=== PATIENT | male | born 1955 | race Caucasian/White ===

== ENCOUNTER 2020-01-12 14:14 | IRF | payer MEDICARE, BC, SELFPAY ==
--- NOTE | ~2020-01-12 | CT_ITS ---
EXAMINATION: CT chest high resolution wo co DATE: 01/25/2020 20:06 INDICATION: Shortness of breath TECHNIQUE: Computed tomography (CT) of the chest was performed without intravenous contrast. The dose -length product (DLP) was 797.73 mGy-cm. Automated exposure control and iterative reconstruction tech nique were employed. COMPARISON: None FINDINGS: There are patchy right perihilar and right upper lobe airspace opacities. Small pleural eff usions are present which cause passive atelectasis in the lower lobes. The heart size is normal. Ther e is an increase in number of nonpathologically enlarged thoracic lymph nodes. There is no evidence o f interstitial lung disease. Dense calcification of the mitral annulus is noted. There is calcified c oronary artery atherosclerosis. Asymmetric gynecomastia is noted on the left. There is a 2.6 cm adeno ma of the right adrenal gland. There is gallbladder wall thickening and pericholecystic fat stranding surrounding the gallbladder. IMPRESSION: 1. Minimal right upper lobe pneumonia. 2. Small pleural effusions with passive atelectasis in the lower lobes. 3. Gallbladder wall thickening and pericholecystic inflammation, correlate for right upper quadrant t enderness and any symptoms of acute cholecystitis. 4. No evidence of interstitial lung disease. Reviewed, dictated and finalized at location A. IMPRESSION: 1. Minimal right upper lobe pneumonia. 2. Small pleural effusions with passive atelectasis in the lower lobes. 3. Gallbladder wall thickening and pericholecystic inflammation, correlate for right upper quadrant tenderness and any symptoms of acute cholecystitis. 4. No evidence of interstitial lung disease.
--- NOTE | ~2020-01-12 | XR_ITS ---
EXAMINATION: XR chest 2V DATE: 01/18/2020 12:35 INDICATION: Shortness of breath. TECHNIQUE: Frontal and lateral views of the chest were obtained. COMPARISON: None. FINDINGS: There are small pleural effusions. There are airspace opacities in the lower lung zones. No pneumothorax. The heart size is normal. IMPRESSION: 1. Small pleural effusions. 2. Airspace opacities in the lower lung zones, consistent with atelectasis versus pneumonia. Reviewed, dictated and finalized at location A. IMPRESSION: 1. Small pleural effusions. 2. Airspace opacities in the lower lung zones, consistent with atelectasis vers us pneumonia.
[2020-01-12 14:15] VITALS: BP 143/61; PULSE 78; RESP 19; TEMP 36.6; O2SAT 94; BMI 39.2
--- NOTE | 2020-01-12 14:51 | ADMGEN ---
This patient, Rigo Ogden, was admitted to [facility] Room 225-02. Patient/family oriented to hospital policies and general routines including ID bracelet, bed and alarms, visiting hours, pain management, procedures, bathroom and other care routines, personal items, smoking policy, room service/diet, and visiting hours. Valuables list has been completed. Information on how to activate the Rapid Response Team has been discussed. Patient/Family are encouraged to report perceived risks to care and to ask questions if they do not understand what they are told or what they should do.
--- NOTE | 2020-01-12 15:15 | ADMGEN ---
This patient, Rigo Ogden, was admitted to [facility] Room 225-02. Patient/family oriented to hospital policies and general routines including ID bracelet, bed and alarms, visiting hours, pain management, procedures, bathroom and other care routines, personal items, smoking policy, room service/diet, and visiting hours. Valuables list has been completed. Information on how to activate the Rapid Response Team has been discussed. Patient/Family are encouraged to report perceived risks to care and to ask questions if they do not understand what they are told or what they should do.
[2020-01-12 16:58] VITALS: PULSE 78; RESP 19; O2SAT 94
[2020-01-12 17:13] LABS: Glucose Point of Care 89 (65-105)
[2020-01-12] MEDS: OMEGA 3 POLYUNSAT FATTY ACIDS 1 GM CAP PO (17:27)
[2020-01-12] MEDS: hydrALAZINE HCL 50 MG TABLET PO (17:28)
[2020-01-12] MEDS: SENNA/DOCUSATE SODIUM TABLET 1 TAB PO (17:29)
[2020-01-12] MEDS: FERROUS SULFATE 324 MG TABLET PO (17:29)
[2020-01-12] MEDS: cilostazoL 100 MG TABLET PO (17:29)
[2020-01-12 20:39] VITALS: PULSE 80
[2020-01-12] MEDS: carvediloL 12.5 MG TABLET 37.5 MG PO (20:39)
[2020-01-12] MEDS: DOCUSATE SODIUM 100 MG CAPSULE PO (20:40)
[2020-01-12] MEDS: ATORVASTATIN 20 MG TABLET PO (20:42)
[2020-01-12 20:55] LABS: Glucose Point of Care 112 (65-105)
[2020-01-12 21:05] LABS: Add Urine Microscopic? YES; Appearance Urine Clear (Clear); Bacteria Urine Trace /hpf; Bilirubin Urine Negative (Negative); Blood Urine 2+ (Negative); Color Urine Yellow (Yellow); Glucose Urine UA Negative (Negative); Ketones Urine Negative (Negative); Leukocyte Esterase Ur Trace LEU/UL (Negative); Mucus Urine Rare /lpf; Nitrate Urine Negative (Negative); Protein Urine 2+ mg/dL (Negative); RBC Urine 21-50 /hpf (0-2); Specific Grav Ur 1.012 (1.001-1.035); Squamous Epithelial Cell Urine Rare /hpf (Few); Urobilinogen Urine Negative mg/dL (<2.0)
--- NOTE | 2020-01-12 21:13 | PC.NURSE ---
HS insulin held d/t decreased glucose Dr Benton notified.
[2020-01-12 22:00] VITALS: BP 148/66; PULSE 80; RESP 16; TEMP 36.6; O2SAT 94
[2020-01-13 04:40] LABS: Basophils Percent Auto 0.3 % (0.2-1.2); Eosinophils Absolute Auto 0.3 K/mm3 (0-0.3); Eosinophils Percent Auto 3.6 % (0-4.4); Hematocrit 24.7 % (42.0-52.0); Hemoglobin 7.9 g/dL (14.0-18.0); Immature Granulocyte Absolute 0.04 K/mm3 (0.00-0.031); Immature Granulocyte Percent A 0.6 % (0-0.5); Lymphocytes Absolute Auto 2.42 K/mm3 (0.9-3.2); Lymphocytes Percent Auto 33.6 % (18.3-44.2); Mean Corpuscular Hemoglobin 28.5 pg (26-34); Mean Corpuscular Volume 89.2 fl (80-100); Mean Platelet Volume 11.6 fl (7.4-10.4); Monocytes Absolute Auto 0.5 K/mm3 (0.1-0.6); Monocytes Percent Auto 6.7 % (2.6-8.5); Neutrophils Percent Auto 55.2 % (45.5-73.1); Platelet Count Result 167 k/mm3 (150-375); Red Blood Count 2.77 M/mm3 (4.6-6.20); Red Cell Distribution Width 15.9 % (11.5-14.5); White Blood Count 7.2 K/mm3 (4.5-10.0)
[2020-01-13 05:19] LABS: Blood Urea Nitrogen 44 mg/dL (9-20); Calcium 8.2 mg/dL (8.4-10.2); Carbon Dioxide 23 mmol/L (22-30); Chloride 107 mmol/L (98-107); Estimated CRCL calculation 37 ml/min; Estimated Glomerular Filt Rate 27; Glucose 64 mg/dL (75-110); Potassium 4.9 mmol/L (3.4-5.0); Sodium 133 mmol/L (137-145)
[2020-01-13] MEDS: cilostazoL 100 MG TABLET PO ×2 (05:29→18:05)
[2020-01-13 05:57] LABS: Glucose Point of Care 67 (65-105)
[2020-01-13 06:00] VITALS: BP 154/67; PULSE 79; RESP 20; TEMP 36.6; O2SAT 98
[2020-01-13 06:48] LABS: Glucose Point of Care 83 (65-105)
[2020-01-13] MEDS: FERROUS SULFATE 324 MG TABLET PO ×2 (09:24→18:05)
[2020-01-13] MEDS: AMLODIPINE BESYLATE 5 MG TABLET 10 MG PO (09:24)
[2020-01-13] MEDS: ASPIRIN 81 MG ENTERIC TABLET PO (09:25)
[2020-01-13 09:26] VITALS: PULSE 79
[2020-01-13] MEDS: DOCUSATE SODIUM 100 MG CAPSULE PO ×2 (09:26→20:53)
[2020-01-13] MEDS: SENNA/DOCUSATE SODIUM TABLET 1 TAB PO ×2 (09:26→18:05)
[2020-01-13] MEDS: CHOLECALCIFEROL 1,000 UNIT TABLET 2000 UNITS PO (09:26)
[2020-01-13] MEDS: CYANOCOBALAMIN 1,000 MCG TABLET 1000 MCG PO (09:26)
[2020-01-13] MEDS: carvediloL 12.5 MG TABLET 37.5 MG PO ×2 (09:26→20:52)
[2020-01-13] MEDS: FOLIC ACID 1 MG TABLET PO (09:27)
[2020-01-13] MEDS: TAMSULOSIN HCL 0.4 MG CAPSULE PO (09:27)
[2020-01-13] MEDS: OMEGA 3 POLYUNSAT FATTY ACIDS 1 GM CAP PO ×2 (09:27→18:07)
[2020-01-13] MEDS: FINASTERIDE 5 MG TABLET PO (09:27)
[2020-01-13] MEDS: hydrALAZINE HCL 50 MG TABLET PO ×3 (09:27→18:06)
[2020-01-13] MEDS: predniSONE 5 MG TABLET PO (09:27)
--- NOTE | 2020-01-13 10:00 | WPDREHABHP ---
H&P: HPI History of Present Illness Chief complaint: Left BKA Narrative: Rigo Ogden is a 64 year old male HISTORY OF PRESENT ILLNESS: The patient's primary rehab impairment category is Zwa-rzcrtfbdia-mdiwq extremity The etiologic diagnosis is osteomyelitis of left foot I saw this patient [id number] on January 13, 2020 at 10:00 a.m. The patient is a 64-year-old white male with a past medical history of bilateral lower extremity atherosclerosis with intermittent claudication, osteomyelitis and nonhealing ulcers of the left foot, chronic kidney disease, peripheral vascular disease, diabetes mellitus with peripheral neuropathy, hypertension, hyperlipidemia and prior kidney transplant in 2013 who presented to [facility] on January 05, 2020 for an elective mvizt-jlv-ljtq amputation. He underwent the amputation on the day of arrival with Dr. Dugan. Postoperatively the patient has experienced acute postoperative pain, acute blood-loss anemia, electrolyte imbalances and nausea, urinary retention and acute kidney injury. His pain is being managed with her denominational 6 and hemoglobin is low but stable at 7.7, electrolytes are being monitored and managed as necessary. He was started on Flomax for the urinary retention and nephrology was consulted for the acute kidney injury. His BUN was 34 on admission and his creatinine was 2.6 with baseline of a +/-2. Bactrim is thought to have cause the worsening renal function and was changed to Levaquin. Patient will continue on tacrolimus and prednisone due to his history of renal transplant. Current creatinine was 2.76 and it was down from 3.01. A Rudd was placed for ongoing retention for which I have consult the urologist here the patient was given IV fluids. Rudd to remain in place for 2 more days from January 11, 2020 the patient will need continue monitoring with lab draws and adjustments as warranted. The patient will be discharged to rehab on subcutaneous heparin for DVT prophylaxis. However I do not see heparin in his discharge medications. The patient has not traveled outside the [place] or had contact with someone who is ill that has traveled outside the use in the past 21 days. The patient has not traveled to an area of the [place] that is experiencing known transmission of the Coronavirus and has not had close personal contact with anyone that has. The patient does not have a fever. The patient does not have any lower respiratory illness. The patient was tested 3 times her COVID-19 and Ultmann test were negative. Therapy was initiated at the acute care facility and the patient transferred to us from [facility] on January 12, 2020 on FALLS OR SURGERIES: The patient has had major surgeries in the 100 days prior to admission. They had falls in the past year. They had falls with injury in the past year. PAST MEDICAL HISTORY: atherosclerosis of both lower extremities with intermittent claudication, chronic kidney disease, claudication, diabetes mellitus with peripheral neuropathy, hypertension, left foot ulcers, glaucoma, blood transfusion, hyperlipidemia, kidney disease, obesity, pneumonia, peripheral vascular disease and sleep apnea PAST SURGICAL HISTORY: left 5th toe amputation, left middle toe amputation, bilateral cataract extraction, colonoscopy, surgical left healed, peripheral catheter removal, kidney transplant SOCIAL HISTORY: the patient lives with his in a 1 level home with the basement. The patient does not need to go to the basement. The patient was independent with ADLs, functional transfers, and ambulation prior. He utilized a manual wheelchair, crutches or cane. His is available to assist him of following rehab if necessary. He does report falls prior. He had major surgery this admission. Former smoker quit in 1982 alcohol use 4 times a week 3 to 4 time, no illicit use of drugs FAMILY HISTORY: mother with hypertension diabetes. Father with hear
--- NOTE | 2020-01-13 10:59 | WPDURCON ---
Assessment and Plan Assessment and plan (1) BPH loc w urin obs/LUTS: Code(s): N40.1 - Benign prostatic hyperplasia with lower urinary tract symptoms Status: Acute (2) Acute urinary retention: Code(s): R33.8 - Other retention of urine Status: Acute Assessment and Plan: Postoperative urinary retention likely resulting from underlying BPH complicated by relative immobility, affects of analgesics/ anesthetics a normal detrusor function and intermittent hyperdistention of the bladder. He has now been on tamsulosin and finasteride for a week. I will plan a voiding trial tomorrow morning. Urology Consult Note HPI Date Seen: 01/13/20 Requesting Physician: Juancarlos Benton MD Primary Care Provider: AIR TWIST OPERATOR PHYSICIAN Consult Narrative Narrative: Rigo Ogden is a 64 year old male transfer to the rehab center from [facility] where he underwent left yeyvs-oda-lbbi amputation approximately 10 days ago. Patient has no antecedent urological history and denied any difficulty voiding until postoperatively. Since the time of his procedure he has been on able to void only small amounts on an infrequent basis. He had been intermittently catheterized to yesterday when a urethral catheter was placed to drainage. Approximately 1 week ago he was started on both finasteride and tamsulosin. He again, he denies prior history of difficulty voiding hesitancy intermittency or sense of incomplete emptying. He is status post CT a cadaveric renal transplantation in 2013. Review of Systems Cardiovascular: Cardiovascular: Denies chest pain, Denies lightheadedness, Denies palpitations and Denies dyspnea Respiratory: Respiratory: Denies dyspnea Gastrointestinal: Gastrointestinal: Denies diarrhea, Denies nausea and Denies vomiting Genitourinary: Genitourinary: Denies hematuria and Denies dysuria Endocrine: Endocrine: Denies palpitations [facility] Past Medical History Medical History Amputation toe Glaucoma Hypertension Surgical History Surgical History Kidney transplanted Family History Family History Mother Family history of kidney disease Family history of obesity Hypertension Diabetes mellitus Sibling Family history of cataracts Diabetes mellitus Father Family history of heart disease in male family member before age 55 Family history of lung cancer Family history of congestive heart failure Hypertension Diabetes mellitus Social History Social History Smoking packs per day: 2 Smoking cigarettes per day: 40.0 Years smoked: 12 Smoking pack-years: 24.00 Smoking status: Former smoker Tobacco type: cigarettes Second hand tobacco smoke exposure: No Alcohol intake: current Drinks per week: 6 Substance use: never Substance use type: does not use Gender identity (if verbalized by the patient): Male Spiritual care concerns: No Meds Home Medications and Allergies Home Medications Medication Instructions Recorded Confirmed Type aspirin 81 mg tablet,delayed 81 mg PO DAILY 10/27/19 01/12/20 History release cholecalciferol (vitamin D3) 50 2,000 unit PO DAILY 10/27/19 01/12/20 History mcg (2,000 unit) chewable tablet cilostazol 100 mg tablet 100 mg PO BID 10/27/19 01/12/20 History omega-3 fatty acids 1,000 mg 1,000 mg PO BID 10/27/19 01/12/20 History capsule semaglutide 1 mg/dose (2 mg/1.5 1 mg SUB-Q WEEKLY 90 Days #9 ml 10/27/19 01/12/20 Rx mL) subcutaneous pen injector tacrolimus 1 mg capsule 1 mg PO BID 10/27/19 01/12/20 History amlodipine 10 mg PO DAILY 01/12/20 01/12/20 History atorvastatin 20 mg PO HS 01/12/20 01/12/20 History carvedilol 37.5 mg PO Q12H 01/12/20 01/12/20 History cyanocobalamin (vitamin B-12) 1,000 mc
--- NOTE | 2020-01-13 11:24 | PHAR ---
Ingredients: Tacrolimus (Anhydrous) -- 1 MG Related Documents: DRUGDEX Evaluations - TACROLIMUS Color: Brown , White Shape: Capsule-shape Imprint: 644 Form: Oral Capsule
[2020-01-13] MEDS: PHARMACIST COMMUNICATION ORDER 1 EACH XX (12:25)
[2020-01-13 12:39] LABS: Glucose Point of Care 102 (65-105)
--- NOTE | 2020-01-13 12:51 | PCCCNOTE ---
On 01/13/20, the student, [Mil Swan ], provided care and completed [facility] documentation on this patient. I have reviewed the student's documentation and agree with the findings.
[2020-01-13 13:19] VITALS: BMI 39.2
[2020-01-13 14:00] VITALS: BP 122/50; PULSE 78; RESP 20; TEMP 36.6; O2SAT 100
--- NOTE | 2020-01-13 14:31 | RPD ---
INDIVIDUALIZED PLAN OF CARE FOR Rigo Ogden Brief Synthesis of Pre-Admission Screen, Post-Admission Evaluation and Therapy Evaluations: The patient presents to rehab with osteomyelitis of left foot. Comorbidities include: acute postoperative pain, acute blood loss anemia, diabetes mellitus type 2, hypertension, hyperlipidemia, chronic kidney disease, peripheral vascular disease, obstructive sleep apnea. The patient requires physician services for medical oversight, management of post-op complications in the setting of present comorbidities, management of diabetes mellitus diagnosis, and pain management. Post-op complications have included acute postoperative pain, acute blood loss anemia, acute kidney injury, and urinary retention. The patient requires nursing services for anticoagulation therapy, diabetes training, DVT prophylactics, infection protection, medication management and education, pressure relief, and wound care. Deficits include:ADLs, Balance, Endurance, Family Training/Education, Mobility, Pain Management, ROM, Safety, Strength, Transfer Phone Circuit Operator/Case Management for: Discharge Planning and Patient/Family Counseling Physical Therapy: 5 days per week for 90 minutes. Treatments may include: Therapeutic Exercise, Gait Training, Neuromuscular Re-education, Transfer Training, Community Reintegration, Bed Mobility, Patient/Family Education, Wheelchair Mobility Group Therapy/Concurrent Therapy Rationales: -Improve attention span during functional activities in a distracted environment. -Enhance problem solving and/or adequate judgment skills during functional activities in a distracted environment. -Promote increased safety awareness in a distracted environment to reduce fall risk with functional tasks, transfers, and ambulation to allow a more safe, self-sufficient return to the home environment. -Improve dynamic balance skills to promote safety and independence with functional activities in a distracted environment for maximum gain. Occupational Therapy: 5 days per week for 90 minutes. Treatments may include: Therapeutic Exercise, Therapeutic Activity, Cognitive Training, Self-Care Transfer Training, Community Reintegration, Home Management, Patient/Family Education, Wheelchair Mobility Training, Energy Conservation Training Group Therapy/Concurrent Therapy Rationales: -Allow therapist to observe and teach generalization and carry-over of skills learned in individual therapy. -Enhance problem solving and sequencing skills during therapeutic activities in a distracted environment. -Promote increased safety awareness in a realistic setting to reduce fall risk with functional tasks due to visual and verbal distractions. -Increase functional level with ADLs, ADL transfers and use of adaptive equipment through therapeutic activities with others while promoting safety to allow a more safe, self-sufficient return home. Medical Prognosis: Good Anticipated Length of Stay: 15 days Rehab Goals: Eating Goal: 06-Independent Oral Hygiene Goal: 06-Independent Toileting Hygiene Goal: 06-Independent Shower/Bathe Self Goal: 04-Supervision or Touching Assistance Upper Body Dressing Goal: 06-Independent Lower Body Dressing Goal: 06-Independent Putting On/Taking Off Footwear Goal: 06-Independent Rolling Left and Right Goal: 06-Independent Sit to Lying Goal: 06-Independent Lying to Sitting on Side of Bed Goal: 06-Independent Sit to Stand Goal: 06-Independent Chair/Dno-cp-Fyklr Transfer Goal: 06-Independent Toilet Transfer Goal: 06-Independent Car Transfer Goal: 06-Independent Walk 10' Goal: 06-Independent Walk 50' with Two Turns Goal: 02-Substantial/Maximal Assistance Walk 150' Goal: 09-Not Applicable Walk 10' on Uneven Surface Goal: 06-Independent 1 Step (Curb) Goal: 03-Partial/Moderate Assistance 4 Steps Goal: 03-Partial/Moderate Assistance 12 Steps Goal Score: 09-Not Applicable Picking Up Object Goal: 06-Independent Wheel 50' with Two Turns S
--- NOTE | 2020-01-13 14:37 | RPD ---
INDIVIDUALIZED PLAN OF CARE FOR Rigo Ogden Brief Synthesis of Pre-Admission Screen, Post-Admission Evaluation and Therapy Evaluations: The patient presents to rehab with osteomyelitis of left foot. Comorbidities include acute postoperative pain, acute blood loss anemia, diabetes mellitus type 2, hypertension, hyperlipidemia, chronic kidney disease, peripheral vascular disease, and obstructive sleep apnea. The patient?s needs will be best met in an intensive program vs. at a lower level of care. The patient requires physician services for medical oversight, management of post-op complications in the setting of present comorbidities, management of diabetes mellitus diagnosis, and pain management. The patient requires nursing services for anticoagulation therapy, diabetes training, DVT prophylactics, infection protection, medication management and education, pressure relief, and wound care. Deficits include:ADLs, Balance, Endurance, Family Training/Education, Mobility, Pain Management, ROM, Safety, Strength, and Transfers. Rn Clinical Documentation Specialist/Case Management for: Discharge Planning and Patient/Family Counseling Physical Therapy: 5 days per week for 90 minutes. Treatments may include: Therapeutic Exercise, Gait Training, Neuromuscular Re-education, Transfer Training, Community Reintegration, Bed Mobility, Patient/Family Education, Wheelchair Mobility Group Therapy/Concurrent Therapy Rationales: -Improve attention span during functional activities in a distracted environment. -Enhance problem solving and/or adequate judgment skills during functional activities in a distracted environment. -Promote increased safety awareness in a distracted environment to reduce fall risk with functional tasks, transfers, and ambulation to allow a more safe, self-sufficient return to the home environment. -Improve dynamic balance skills to promote safety and independence with functional activities in a distracted environment for maximum gain. Occupational Therapy: 5 days per week for 90 minutes. Treatments may include: Therapeutic Exercise, Therapeutic Activity, Cognitive Training, Self-Care Transfer Training, Community Reintegration, Home Management, Patient/Family Education, Wheelchair Mobility Training, Energy Conservation Training Group Therapy/Concurrent Therapy Rationales: -Allow therapist to observe and teach generalization and carry-over of skills learned in individual therapy. -Enhance problem solving and sequencing skills during therapeutic activities in a distracted environment. -Promote increased safety awareness in a realistic setting to reduce fall risk with functional tasks due to visual and verbal distractions. -Increase functional level with ADLs, ADL transfers and use of adaptive equipment through therapeutic activities with others while promoting safety to allow a more safe, self-sufficient return home. Medical Prognosis: Good Anticipated Length of Stay: 12 days Rehab Goals: Eating Goal: 06-Independent Oral Hygiene Goal: 06-Independent Toileting Hygiene Goal: 06-Independent Shower/Bathe Self Goal: 04-Supervision or Touching Assistance Upper Body Dressing Goal: 06-Independent Lower Body Dressing Goal: 06-Independent Putting On/Taking Off Footwear Goal: 06-Independent Rolling Left and Right Goal: 06-Independent Sit to Lying Goal: 06-Independent Lying to Sitting on Side of Bed Goal: 06-Independent Sit to Stand Goal: 06-Independent Chair/Spc-tx-Upnwq Transfer Goal: 06-Independent Toilet Transfer Goal: 06-Independent Car Transfer Goal: 06-Independent Walk 10' Goal: 06-Independent Walk 50' with Two Turns Goal: 02-Substantial/Maximal Assistance Walk 150' Goal: 09-Not Applicable Walk 10' on Uneven Surface Goal: 06-Independent 1 Step (Curb) Goal: 03-Partial/Moderate Assistance 4 Steps Goal: 03-Partial/Moderate Assistance 12 Steps Goal Score: 09-Not Applicable Picking Up Object Goal: 06-Independent Wheel 50' with Two Turns Score: 06-Independent Wheel 150' G
[2020-01-13 17:02] LABS: Glucose Point of Care 106 (65-105)
[2020-01-13 20:52] VITALS: PULSE 80
[2020-01-13] MEDS: ATORVASTATIN 20 MG TABLET PO (20:52)
[2020-01-13 20:57] LABS: Glucose Point of Care 126 (65-105)
[2020-01-13 22:00] VITALS: BP 147/68; PULSE 76; RESP 18; TEMP 37.2; O2SAT 97
[2020-01-14] MEDS: cilostazoL 100 MG TABLET PO ×2 (05:37→17:26)
[2020-01-14 05:58] LABS: Glucose Point of Care 124 (65-105)
[2020-01-14 06:00] VITALS: BP 133/75; PULSE 80; RESP 18; TEMP 37; O2SAT 95
--- NOTE | 2020-01-14 08:44 | WPDUROPN2 ---
Progress Note: A&P Assessment and Plan (1) Acute urinary retention: Code(s): R33.8 - Other retention of urine Status: Acute Assessment and Plan: Voiding trial this morning. Should check bladder scan for postvoid residual. If minimal no further intervention will be required from our standpoint. It was unable to void will need Rudd catheter placed. Subjective Subjective Date/Time Seen: 01/14/20 08:44 Patient without complaints. Rudd catheter has been removed for voiding trial this morning. Review of Systems Review of Systems: All systems reviewed & are unremarkable except as noted in HPI and below Exam Const: General: no acute distress HENMT: General nose exam: Normal nares present Resp: Effort & Inspection: normal respiratory effort Cardio: Rate: regular rate GI: Inspection: non-distended Objective Data Vital Signs Vital Signs: Vital Signs - 24 hr 01/13/20 09:26 01/13/20 14:00 01/13/20 20:52 Temperature 36.6 C Pulse Rate 79 78 80 Respiratory Rate 20 Blood Pressure 122/50 L Pulse Oximetry 100 01/13/20 22:00 01/14/20 06:00 Temperature 37.2 C 37.0 C Pulse Rate 76 80 Respiratory Rate 18 18 Blood Pressure 147/68 H 133/75 Pulse Oximetry 97 95 Intake/Output Intake/Output: Intake & Output 01/11/20 01/12/20 01/13/20 01/14/20 23:59 23:59 23:59 23:59 Intake Total 240 1320 480 Output Total 1400 Balance 240 1320 -920 Meds/Results Medications: Active Medications Generic Name Dose Route Start Last Admin Trade Name Joseq PRN Reason Stop Dose Admin Amlodipine Besylate 10 mg 01/13/20 09:00 01/13/20 09:24 Norvasc PO 10 mg DAILY SKIP Administration Aspirin 81 mg 01/13/20 09:00 01/13/20 09:25 Aspirin Ec PO 81 mg DAILY SKIP Administration Atorvastatin Calcium 20 mg 01/12/20 21:00 01/13/20 20:52 Lipitor PO 20 mg HS SKIP Administration Carvedilol 37.5 mg 01/12/20 21:00 01/13/20 20:52 Coreg PO 37.5 mg Q12HR SKIP Administration Cilostazol 100 mg 01/12/20 16:30 01/14/20 05:37 Pletal PO 100 mg BIDAC SKIP Administration Cyanocobalamin 1,000 mcg 01/13/20 09:00 01/13/20 09:26 Vitamin B-12 Tab PO 1,000 mcg DAILY SKIP Administration Dextrose 12.5 gm 01/12/20 15:16 Dextrose 50% Syringe IV PUSH PRN PRN Hypoglycemia Protocol Docusate Sodium 100 mg 01/12/20 21:00 01/13/20 20:53 Colace Capsule PO 100 mg Q12HR SKIP Administration Epoetin Madhu 10,000 units 01/17/20 09:00 Epogen SUB-Q Mo@0900 SKIP Ferrous Sulfate 324 mg 01/12/20 17:00 01/13/20 18:05 Ferrous Sulfate PO 324 mg BIDWM SKIP Administration Finasteride 5 mg 01/13/20 09:00 01/13/20 09:27 Proscar PO 5 mg DAILY SKIP Administration Fish Oil 1 gm 01/12/20 17:00 01/13/20 18:07 Lovaza PO 1 gm BID SKIP Administration Folic Acid 1 mg 01/13/20 09:00 01/13/20 09:27 Folic Acid PO 1 mg DAILY SKIP Administration Glucagon 1 mg 01/12/20 15:16 Glucagon For Inj IM PRN PRN Hypoglycemia Protocol Glucose 15 gm 01/12/20 15:16 Glutose 15 PO PRN PRN Hypoglycemia Protocol Hydralazine HCl 50 mg 01/12/20 17:00 01/13/20 18:06 Apresoline Tablet PO 50 mg TID SKIP Administration Dextrose 1,000 mls @ 100 mls/hr 01/12/20 15:16 Dextrose 5% 1,000 Ml IVPB PRN PRN Hypoglycemia Protocol Insulin Human NPH 25 units 01/12/20 21:00 01/12/20 21:13 SUB-Q Not Given HS [facility] Insulin Human NPH 50 units 01/13/20 09:00 01/13/20 12:21 SUB-Q Not Given DAILY SKIP Non-Formulary Medication 1 mg 01/19/20 09:00 Semaglutide [Ozempic] SUB-Q 02/18/20 09:01 WEEKLY SKIP Prednisone 5 mg 01/13/20 09:00 01/13/20 09:27 Prednisone PO 5 mg DAILY SKIP Administration Senna/Docusate Sodium 1 tab 01/12/20 17:00 01/13/20 18:05 Senokot S Tablet PO 1 tab BID SKIP Administration Tamsulosin HCl 0.4 mg 06
[2020-01-14 09:42] VITALS: PULSE 80
[2020-01-14] MEDS: carvediloL 12.5 MG TABLET 37.5 MG PO ×2 (09:42→20:19)
[2020-01-14] MEDS: FERROUS SULFATE 324 MG TABLET PO ×2 (09:42→17:27)
[2020-01-14] MEDS: AMLODIPINE BESYLATE 5 MG TABLET 10 MG PO (09:42)
[2020-01-14] MEDS: ASPIRIN 81 MG ENTERIC TABLET PO (09:42)
[2020-01-14] MEDS: FINASTERIDE 5 MG TABLET PO (09:43)
[2020-01-14] MEDS: DOCUSATE SODIUM 100 MG CAPSULE PO ×2 (09:43→20:35)
[2020-01-14] MEDS: CHOLECALCIFEROL 1,000 UNIT TABLET 2000 UNITS PO (09:43)
[2020-01-14] MEDS: CYANOCOBALAMIN 1,000 MCG TABLET 1000 MCG PO (09:43)
[2020-01-14] MEDS: SENNA/DOCUSATE SODIUM TABLET 1 TAB PO (09:43)
[2020-01-14] MEDS: FOLIC ACID 1 MG TABLET PO (09:44)
[2020-01-14] MEDS: hydrALAZINE HCL 50 MG TABLET PO ×3 (09:44→17:28)
[2020-01-14] MEDS: OMEGA 3 POLYUNSAT FATTY ACIDS 1 GM CAP PO ×2 (09:44→17:28)
[2020-01-14] MEDS: TAMSULOSIN HCL 0.4 MG CAPSULE PO (09:45)
[2020-01-14] MEDS: predniSONE 5 MG TABLET PO (09:45)
--- NOTE | 2020-01-14 10:38 | PCPTNOTE ---
Rigo Krysten Ogden was evaluated for a slide board on 01/14/2020 by this physical therapist. The slide board will resolve patient's mobility limitations and will be used for ADL's within the home. The patient can safely use the slide board. ?The slide board will resolve the patient?s mobility deficits, including transfers in and out of bed/chairs/toilet. Sigrid Conn PT
[2020-01-14 12:50] LABS: Glucose Point of Care 149 (65-105)
--- NOTE | 2020-01-14 13:40 | WPDNEURORHBP ---
Subjective Date/time seen: 01/14/20 13:40 Interval history: this 64-year-old gentleman is here after having had left [id number] amputation because of the osteomyelitis and peripheral vascular disease and peripheral neuropathy he is doing fairly well he was supposed to be on heparin at least twice a day from the referring hospital which we will resume we have hold in fact holding his NPH and putting month sliding scale and see what his sugars do because I do not believe he needs those large doses of NPH as he was doing before he denies any headache nausea vomiting chest pain shortness of breath fever chills sore throat Review of Systems Review of Systems: All systems reviewed & are unremarkable except as noted in HPI and below Functional Status Ambulation Ability Ability to Ambulate 10 Feet: Moderate Assistance X 1 Ambulation Assistive Devices: Walker, Standard Transfers Ability Ability to Transfer In/Out of Chair: Moderate Assistance X 1 Exam Const: General: comfortable and no acute distress HENMT: General nose exam: Normal nares present Mouth: Yes moist mucous membranes Eyes: General: appearance normal, both eyes and all related structures Neck: Neck: supple and no JVD Resp: Effort & Inspection: normal respiratory effort Auscultation: clear to auscultation bilaterally Cardio: Rate: regular rate Rhythm: regular rhythm GI: GI Palp: Yes Soft to palpation Auscultation: normal bowel sounds Back/Spine/Pelvis: Other: normal Skin: General skin exam: normal color and no rashes or lesions noted Neuro: Other: patient is awake and alert well oriented has normal speech and language function normal cranial examination decreased strength related to the peripheral neuropathy and also after having had surgery [id number] amputation on the left side needing assistance all the activities of daily Extrem: Other: the stump of the left [id number] amputation is clean Psych: Mental Status: mental status grossly normal Objective Data Vital Signs Vital Signs: Vital Signs - 24 hr 01/13/20 14:00 01/13/20 20:52 01/13/20 22:00 Temperature 36.6 C 37.2 C Pulse Rate 78 80 76 Respiratory Rate 20 18 Blood Pressure 122/50 L 147/68 H Pulse Oximetry 100 97 01/14/20 06:00 01/14/20 09:42 Temperature 37.0 C Pulse Rate 80 80 Respiratory Rate 18 Blood Pressure 133/75 Pulse Oximetry 95 Intake/Output Intake/Output: Intake & Output 01/11/20 01/12/20 01/13/20 01/14/20 23:59 23:59 23:59 23:59 Intake Total 240 1320 960 Output Total 1400 Balance 240 1320 -440 Meds/Results Medications: Active Medications Generic Name Dose Route Start Last Admin Trade Name Freq PRN Reason Stop Dose Admin Amlodipine Besylate 10 mg 01/13/20 09:00 01/14/20 09:42 Norvasc PO 10 mg DAILY SKIP Administration Aspirin 81 mg 01/13/20 09:00 01/14/20 09:42 Aspirin Ec PO 81 mg DAILY SKIP Administration Atorvastatin Calcium 20 mg 01/12/20 21:00 01/13/20 20:52 Lipitor PO 20 mg HS SKIP Administration Carvedilol 37.5 mg 01/12/20 21:00 01/14/20 09:42 Coreg PO 37.5 mg Q12HR SKIP Administration Cilostazol 100 mg 01/12/20 16:30 01/14/20 05:37 Pletal PO 100 mg BIDAC SKIP Administration Cyanocobalamin 1,000 mcg 01/13/20 09:00 01/14/20 09:43 Vitamin B-12 Tab PO 1,000 mcg DAILY SKIP Administration Dextrose 12.5 gm 01/12/20 15:16 Dextrose 50% Syringe IV PUSH PRN PRN Hypoglycemia Protocol Dextrose 12.5 gm 01/14/20 10:23 Dextrose 50% Syringe IV PUSH PRN PRN Hypoglycemia Protocol Docusate Sodium 100 mg 01/12/20 21:00 01/14/20 09:43 Colace Capsule PO 100 mg Q12HR SKIP Administration Epoetin Madhu 10,000 units 01/17/20 09:00 Epogen SUB-Q Mo@0900 [facility] Ferrous Sulfate 324 mg 01/12/20 17:00 01/14/20 09:42 Ferrous Sulfate PO 324 mg BIDWM SKIP Administration Finasteride 5 mg 01/13/20 09:00 01/14/20 0
[2020-01-14 14:00] VITALS: BP 128/64; PULSE 82; RESP 20; TEMP 36.8; O2SAT 96
[2020-01-14 17:15] LABS: Glucose Point of Care 200 (65-105)
[2020-01-14] MEDS: ATORVASTATIN 20 MG TABLET PO (20:18)
[2020-01-14 20:19] VITALS: PULSE 82
[2020-01-14 20:30] VITALS: BP 136/65; PULSE 83; RESP 18; TEMP 36.8; O2SAT 95
[2020-01-14] MEDS: HEPARIN SODIUM 5,000 UNITS/ML VIAL 5000 UNITS SUB-Q (20:36)
[2020-01-14 22:01] LABS: Glucose Point of Care 192 (65-105)
[2020-01-15 05:46] VITALS: BP 159/66; PULSE 85; RESP 18; TEMP 37; O2SAT 96
[2020-01-15] MEDS: cilostazoL 100 MG TABLET PO ×2 (06:14→16:58)
[2020-01-15 06:50] LABS: Glucose Point of Care 138 (65-105)
[2020-01-15 08:00] VITALS: PULSE 83; RESP 19; O2SAT 93
[2020-01-15 09:47] VITALS: PULSE 84
[2020-01-15] MEDS: carvediloL 12.5 MG TABLET 37.5 MG PO ×2 (09:47→20:28)
[2020-01-15] MEDS: SENNA/DOCUSATE SODIUM TABLET 1 TAB PO (09:47)
[2020-01-15] MEDS: ASPIRIN 81 MG ENTERIC TABLET PO (09:47)
[2020-01-15] MEDS: FERROUS SULFATE 324 MG TABLET PO ×2 (09:47→16:58)
[2020-01-15] MEDS: AMLODIPINE BESYLATE 5 MG TABLET 10 MG PO (09:47)
[2020-01-15] MEDS: CYANOCOBALAMIN 1,000 MCG TABLET 1000 MCG PO (09:48)
[2020-01-15] MEDS: FINASTERIDE 5 MG TABLET PO (09:49)
[2020-01-15] MEDS: OMEGA 3 POLYUNSAT FATTY ACIDS 1 GM CAP PO ×2 (09:49→16:58)
[2020-01-15] MEDS: TAMSULOSIN HCL 0.4 MG CAPSULE PO (09:50)
[2020-01-15] MEDS: predniSONE 5 MG TABLET PO (09:50)
[2020-01-15] MEDS: HEPARIN SODIUM 5,000 UNITS/ML VIAL 5000 UNITS SUB-Q ×2 (09:50→20:30)
[2020-01-15] MEDS: hydrALAZINE HCL 50 MG TABLET PO ×3 (09:50→16:58)
[2020-01-15] MEDS: DOCUSATE SODIUM 100 MG CAPSULE PO ×2 (09:51→20:28)
[2020-01-15] MEDS: FOLIC ACID 1 MG TABLET PO (09:51)
[2020-01-15] MEDS: CHOLECALCIFEROL 1,000 UNIT TABLET 2000 UNITS PO (09:51)
[2020-01-15 11:57] LABS: Glucose Point of Care 198 (65-105)
[2020-01-15 14:00] VITALS: BP 117/48; PULSE 83; RESP 19; TEMP 36.6; O2SAT 93
[2020-01-15 16:48] LABS: Glucose Point of Care 213 (65-105)
[2020-01-15] MEDS: INSULIN ASPART (*BKC) 100 UNITS/ML SUB-Q (16:59)
--- NOTE | 2020-01-15 17:16 | WPDNEURORHBP ---
Subjective Date/time seen: 01/15/20 17:16 Interval history: this pleasant 64-year-old gentleman is status post renal transplant is here primarily after having had left BKA and he has underlying acute kidney injury renal dysfunction peripheral neuropathy peripheral vascular disease we have held his long-acting insulins because low sugars and will use the sliding scale instead he denies any headache nausea vomiting chest pain shortness of breath fever chills sore throat Review of Systems Review of Systems: All systems reviewed & are unremarkable except as noted in HPI and below Functional Status Ambulation Ability Ability to Ambulate 10 Feet: Minimum Assistance X 1 Ambulation Assistive Devices: Walker, Standard Transfers Ability Ability to Transfer In/Out of Chair: Minimum Assistance X 1 Exam Const: General: comfortable and no acute distress HENMT: General nose exam: Normal nares present Mouth: Yes moist mucous membranes Eyes: General: appearance normal, both eyes and all related structures Neck: Neck: supple and no JVD Resp: Effort & Inspection: normal respiratory effort Auscultation: clear to auscultation bilaterally Cardio: Rate: regular rate Rhythm: regular rhythm GI: GI Palp: Yes Soft to palpation Auscultation: normal bowel sounds Skin: General skin exam: normal color and no rashes or lesions noted Neuro: Other: patient's needs assistance clearly related to left BKA with underlying peripheral neuropathy and peripheral vascular disease Extrem: Other: left BKA is clean Psych: Mental Status: mental status grossly normal Objective Data Vital Signs Vital Signs: Vital Signs - 24 hr 01/14/20 20:19 01/14/20 20:30 01/15/20 05:46 Temperature 36.8 C 37.0 C Pulse Rate 82 83 85 Respiratory Rate 18 18 Blood Pressure 136/65 159/66 H Pulse Oximetry 95 96 01/15/20 09:47 01/15/20 14:00 Temperature 36.6 C Pulse Rate 84 83 Respiratory Rate 19 Blood Pressure 117/48 L Pulse Oximetry 93 Intake/Output Intake/Output: Intake & Output 01/12/20 01/13/20 01/14/20 01/15/20 23:59 23:59 23:59 23:59 Intake Total 240 1320 1680 780 Output Total 1400 Balance 240 1320 280 780 Meds/Results Medications: Active Medications Generic Name Dose Route Start Last Admin Trade Name Freq PRN Reason Stop Dose Admin Amlodipine Besylate 10 mg 01/13/20 09:00 01/15/20 09:47 Norvasc PO 10 mg DAILY SKIP Administration Aspirin 81 mg 01/13/20 09:00 01/15/20 09:47 Aspirin Ec PO 81 mg DAILY SKIP Administration Atorvastatin Calcium 20 mg 01/12/20 21:00 01/14/20 20:18 Lipitor PO 20 mg HS SKIP Administration Carvedilol 37.5 mg 01/12/20 21:00 01/15/20 09:47 Coreg PO 37.5 mg Q12HR SKIP Administration Cilostazol 100 mg 01/12/20 16:30 01/15/20 16:58 Pletal PO 100 mg BIDAC SKIP Administration Cyanocobalamin 1,000 mcg 01/13/20 09:00 01/15/20 09:48 Vitamin B-12 Tab PO 1,000 mcg DAILY SKIP Administration Dextrose 12.5 gm 01/14/20 10:23 Dextrose 50% Syringe IV PUSH PRN PRN Hypoglycemia Protocol Docusate Sodium 100 mg 01/12/20 21:00 01/15/20 09:51 Colace Capsule PO 100 mg Q12HR SKIP Administration Epoetin Madhu 10,000 units 01/17/20 09:00 Epogen SUB-Q Mo@0900 SKIP Ferrous Sulfate 324 mg 01/12/20 17:00 01/15/20 16:58 Ferrous Sulfate PO 324 mg BIDWM SKIP Administration Finasteride 5 mg 01/13/20 09:00 01/15/20 09:49 Proscar PO 5 mg DAILY SKIP Administration Fish Oil 1 gm 01/12/20 17:00 01/15/20 16:58 Lovaza PO 1 gm BID SKIP Administration Folic Acid 1 mg 01/13/20 09:00 01/15/20 09:51 Folic Acid PO 1 mg DAILY SKIP Administration Glucagon 1 mg 01/14/20 10:23 Glucagon For Inj IM PRN PRN Hypoglycemia Protocol Glucose 15 gm 01/14/20 10:23 Glutose 15 PO PRN PRN Hypoglycemia Protocol Heparin Sodium (Porcine) 5,000 units 01/14/20 21:
[2020-01-15 20:00] VITALS: BP 131/59; PULSE 86; RESP 20; TEMP 36.9; O2SAT 95
[2020-01-15 20:28] VITALS: PULSE 82
[2020-01-15] MEDS: ATORVASTATIN 20 MG TABLET PO (20:29)
[2020-01-15] MEDS: INSULIN GLARGINE (*BKC) 100 UNITS/ML 10 UNITS SUB-Q (20:39)
[2020-01-15 21:08] LABS: Glucose Point of Care 222 (65-105)
[2020-01-16 05:43] VITALS: BP 141/67; PULSE 84; RESP 20; TEMP 36.7; O2SAT 96
[2020-01-16] MEDS: cilostazoL 100 MG TABLET PO ×2 (05:50→17:58)
[2020-01-16 06:37] LABS: Glucose Point of Care 164 (65-105)
[2020-01-16] MEDS: FERROUS SULFATE 324 MG TABLET PO ×2 (09:52→17:58)
[2020-01-16 09:53] VITALS: PULSE 82
[2020-01-16] MEDS: ASPIRIN 81 MG ENTERIC TABLET PO (09:53)
[2020-01-16] MEDS: AMLODIPINE BESYLATE 5 MG TABLET 10 MG PO (09:53)
[2020-01-16] MEDS: carvediloL 12.5 MG TABLET 37.5 MG PO ×2 (09:53→21:42)
[2020-01-16] MEDS: OMEGA 3 POLYUNSAT FATTY ACIDS 1 GM CAP PO ×2 (09:54→17:59)
[2020-01-16] MEDS: FOLIC ACID 1 MG TABLET PO (09:54)
[2020-01-16] MEDS: hydrALAZINE HCL 50 MG TABLET PO ×3 (09:54→17:59)
[2020-01-16] MEDS: HEPARIN SODIUM 5,000 UNITS/ML VIAL 5000 UNITS SUB-Q ×2 (09:54→21:44)
[2020-01-16] MEDS: FINASTERIDE 5 MG TABLET PO (09:54)
[2020-01-16] MEDS: CYANOCOBALAMIN 1,000 MCG TABLET 1000 MCG PO (09:55)
[2020-01-16] MEDS: CHOLECALCIFEROL 1,000 UNIT TABLET 2000 UNITS PO (09:55)
[2020-01-16] MEDS: SENNA/DOCUSATE SODIUM TABLET 1 TAB PO (09:55)
[2020-01-16] MEDS: DOCUSATE SODIUM 100 MG CAPSULE PO ×2 (09:56→21:46)
[2020-01-16] MEDS: predniSONE 5 MG TABLET PO (09:57)
[2020-01-16] MEDS: TAMSULOSIN HCL 0.4 MG CAPSULE PO (09:57)
[2020-01-16 10:05] VITALS: PULSE 82; RESP 20; O2SAT 96
[2020-01-16 12:12] LABS: Glucose Point of Care 175 (65-105)
[2020-01-16 14:00] VITALS: BP 121/56; PULSE 82; RESP 18; TEMP 36.8; O2SAT 93
[2020-01-16 17:32] LABS: Glucose Point of Care 237 (65-105)
[2020-01-16] MEDS: INSULIN ASPART (*BKC) 100 UNITS/ML SUB-Q (18:00)
--- NOTE | 2020-01-16 18:22 | WPDNEURORHBP ---
Subjective Date/time seen: 01/16/20 18:22 Interval history: this 64-year-old the diabetic is here after having had left BKA related to multiple factors including the peripheral neuropathy and peripheral vascular disease he is status post renal transplant his sugars are rising up since we have held his high dose of the Lantus it needs to be increased further he denies any new complaints particularly denies any headache nausea vomiting chest pain shortness of breath fever chills sore throat Review of Systems Review of Systems: All systems reviewed & are unremarkable except as noted in HPI and below Functional Status Ambulation Ability Ability to Ambulate 10 Feet: Minimum Assistance X 1 Ambulation Assistive Devices: Walker, Standard Transfers Ability Ability to Transfer In/Out of Chair: Minimum Assistance X 1 Exam Const: General: comfortable and no acute distress HENMT: General nose exam: Normal nares present Mouth: Yes moist mucous membranes Eyes: General: appearance normal, both eyes and all related structures Neck: Neck: supple and no JVD Resp: Effort & Inspection: normal respiratory effort Auscultation: clear to auscultation bilaterally Cardio: Rate: regular rate Rhythm: regular rhythm GI: GI Palp: Yes Soft to palpation Auscultation: normal bowel sounds Skin: General skin exam: normal color and no rashes or lesions noted Neuro: Other: patient's mental status is normal cranial exam shows normal is strength is improving he does have evidence of prior peripheral vascular disease and peripheral neuropathy Extrem: Other: the left BKA stable Psych: Mental Status: mental status grossly normal Objective Data Vital Signs Vital Signs: Vital Signs - 24 hr 01/15/20 20:00 01/15/20 20:28 01/16/20 05:43 Temperature 36.9 C 36.7 C Pulse Rate 86 82 84 Respiratory Rate 20 20 Blood Pressure 131/59 L 141/67 H Pulse Oximetry 95 96 01/16/20 09:53 01/16/20 10:05 01/16/20 14:00 Temperature 36.8 C Pulse Rate 82 82 82 Respiratory Rate 20 18 Blood Pressure 121/56 L Pulse Oximetry 96 93 Intake/Output Intake/Output: Intake & Output 01/13/20 01/14/20 01/15/20 01/16/20 23:59 23:59 23:59 23:59 Intake Total 1320 1680 1260 580 Output Total 1400 Balance 2826 755 2841 580 Meds/Results Medications: Active Medications Generic Name Dose Route Start Last Admin Trade Name Freq PRN Reason Stop Dose Admin Amlodipine Besylate 10 mg 01/13/20 09:00 01/16/20 09:53 Norvasc PO 10 mg DAILY SKIP Administration Aspirin 81 mg 01/13/20 09:00 01/16/20 09:53 Aspirin Ec PO 81 mg DAILY SKIP Administration Atorvastatin Calcium 20 mg 01/12/20 21:00 01/15/20 20:29 Lipitor PO 20 mg HS SKIP Administration Carvedilol 37.5 mg 01/12/20 21:00 01/16/20 09:53 Coreg PO 37.5 mg Q12HR SKIP Administration Cilostazol 100 mg 01/12/20 16:30 01/16/20 17:58 Pletal PO 100 mg BIDAC SKIP Administration Cyanocobalamin 1,000 mcg 01/13/20 09:00 01/16/20 09:55 Vitamin B-12 Tab PO 1,000 mcg DAILY SKIP Administration Dextrose 12.5 gm 01/14/20 10:23 Dextrose 50% Syringe IV PUSH PRN PRN Hypoglycemia Protocol Docusate Sodium 100 mg 01/12/20 21:00 01/16/20 09:56 Colace Capsule PO 100 mg Q12HR SKIP Administration Epoetin Maduh 10,000 units 01/17/20 09:00 Epogen SUB-Q Mo@0900 [facility] Ferrous Sulfate 324 mg 01/12/20 17:00 01/16/20 17:58 Ferrous Sulfate PO 324 mg BIDWM SKIP Administration Finasteride 5 mg 01/13/20 09:00 01/16/20 09:54 Proscar PO 5 mg DAILY SKIP Administration Fish Oil 1 gm 01/12/20 17:00 01/16/20 17:59 Lovaza PO 1 gm BID SKIP Administration Folic Acid 1 mg 01/13/20 09:00 01/16/20 09:54 Folic Acid PO 1 mg DAILY SKIP Administration Glucagon 1 mg 01/14/20 10:23 Glucagon For Inj IM PRN PRN Hypoglycemia Protocol Glucose 15 gm 01/14/20 10:23 Glutose 15 PO
[2020-01-16 21:42] VITALS: PULSE 80
[2020-01-16] MEDS: ATORVASTATIN 20 MG TABLET PO (21:43)
[2020-01-16] MEDS: INSULIN GLARGINE (*BKC) 100 UNITS/ML 15 UNITS SUB-Q (21:48)
[2020-01-16 22:00] VITALS: BP 138/69; PULSE 84; RESP 20; TEMP 36.9; O2SAT 95
[2020-01-16 22:28] LABS: Glucose Point of Care 197 (65-105)
[2020-01-17 06:00] VITALS: BP 142/66; PULSE 79; RESP 20; TEMP 37; O2SAT 95
[2020-01-17] MEDS: cilostazoL 100 MG TABLET PO ×2 (06:23→18:17)
[2020-01-17 07:04] LABS: Glucose Point of Care 150 (65-105)
[2020-01-17] MEDS: AMLODIPINE BESYLATE 5 MG TABLET 10 MG PO (08:46)
[2020-01-17] MEDS: FINASTERIDE 5 MG TABLET PO (08:46)
[2020-01-17] MEDS: OMEGA 3 POLYUNSAT FATTY ACIDS 1 GM CAP PO ×2 (08:46→18:19)
[2020-01-17] MEDS: ASPIRIN 81 MG ENTERIC TABLET PO (08:46)
[2020-01-17 08:47] VITALS: PULSE 79
[2020-01-17] MEDS: carvediloL 12.5 MG TABLET 37.5 MG PO ×2 (08:47→21:12)
[2020-01-17] MEDS: FERROUS SULFATE 324 MG TABLET PO ×2 (08:47→18:17)
[2020-01-17] MEDS: CHOLECALCIFEROL 1,000 UNIT TABLET 2000 UNITS PO (08:48)
[2020-01-17] MEDS: CYANOCOBALAMIN 1,000 MCG TABLET 1000 MCG PO (08:48)
[2020-01-17] MEDS: FOLIC ACID 1 MG TABLET PO (08:49)
[2020-01-17] MEDS: hydrALAZINE HCL 50 MG TABLET PO ×3 (08:49→18:19)
[2020-01-17] MEDS: HEPARIN SODIUM 5,000 UNITS/ML VIAL 5000 UNITS SUB-Q ×2 (08:49→21:13)
[2020-01-17] MEDS: TAMSULOSIN HCL 0.4 MG CAPSULE PO (08:50)
[2020-01-17] MEDS: predniSONE 5 MG TABLET PO (08:50)
[2020-01-17] MEDS: EPOETIN ALFA 10,000 UNITS/ML VIAL 10000 UNITS SUB-Q (09:48)
[2020-01-17 12:10] LABS: Glucose Point of Care 193 (65-105)
[2020-01-17 14:00] VITALS: BP 150/66; PULSE 86; RESP 22; TEMP 37.2; O2SAT 96
[2020-01-17 17:09] LABS: Glucose Point of Care 251 (65-105)
[2020-01-17] MEDS: INSULIN ASPART (*BKC) 100 UNITS/ML SUB-Q (18:14)
[2020-01-17 21:13] LABS: Glucose Point of Care 223 (65-105)
[2020-01-17] MEDS: ATORVASTATIN 20 MG TABLET PO (21:13)
[2020-01-17] MEDS: DOCUSATE SODIUM 100 MG CAPSULE PO (21:13)
[2020-01-17] MEDS: INSULIN GLARGINE (*BKC) 100 UNITS/ML 15 UNITS SUB-Q (21:13)
[2020-01-17 22:00] VITALS: BP 150/66; PULSE 83; RESP 22; TEMP 37.3; O2SAT 95
[2020-01-18] MEDS: cilostazoL 100 MG TABLET PO ×2 (05:52→17:29)
[2020-01-18 06:00] VITALS: BP 148/69; PULSE 86; RESP 22; TEMP 37.9; O2SAT 93
[2020-01-18 06:46] LABS: Glucose Point of Care 148 (65-105)
[2020-01-18 08:20] VITALS: PULSE 83; RESP 18; O2SAT 92
--- NOTE | 2020-01-18 08:42 | WPDUROPN2 ---
Progress Note: A&P Assessment and Plan (1) BPH loc w urin obs/LUTS: Code(s): N40.1 - Benign prostatic hyperplasia with lower urinary tract symptoms Status: Acute Assessment and Plan: Continue Flomax and Finasteride indefinately. Bladder scan post void today, if <300cc. Ok to discharge home at anytime without ramey to follow up in a month. Subjective Subjective Date/Time Seen: 01/18/20 08:42 Patient without complaints. Ramey catheter has been removed, patient voiding well. States he has difficulty urinating into the urinal but does better when he is sitting on the toilet. Review of Systems Cardiovascular: Cardiovascular: Denies chest pain Respiratory: Respiratory: Denies no additional respiratory complaints Gastrointestinal: Gastrointestinal: Denies abdominal pain, Denies nausea and Denies vomiting Genitourinary: Genitourinary: Denies hematuria, Denies genital pain, Denies dysuria, Denies flank pain, Denies urinary incontinence and Denies urinary urgency Exam Resp: Effort & Inspection: normal respiratory effort Cardio: Rate: tachycardic GI: GI Palp: Yes Soft to palpation and No Firmness to palpation present (GI) Rectal Exam: No tenderness Objective Data Vital Signs Vital Signs: Vital Signs - 24 hr 01/17/20 08:47 01/17/20 14:00 01/17/20 22:00 Temperature 98.9 F 99.2 F Pulse Rate 79 86 83 Respiratory Rate 22 H 22 H Blood Pressure 150/66 H 150/66 H Pulse Oximetry 96 95 01/18/20 06:00 Temperature 100.2 F H Pulse Rate 86 Respiratory Rate 22 H Blood Pressure 148/69 H Pulse Oximetry 93 Intake/Output Intake/Output: Intake & Output 01/15/20 01/16/20 01/17/20 01/18/20 23:59 23:59 23:59 23:59 Intake Total 1260 1060 1320 240 Balance 1260 1060 1320 240 Meds/Results Medications: Active Medications Generic Name Dose Route Start Last Admin Trade Name Freq PRN Reason Stop Dose Admin Amlodipine Besylate 10 mg 01/13/20 09:00 01/17/20 08:46 Norvasc PO 10 mg DAILY SKIP Administration Aspirin 81 mg 01/13/20 09:00 01/17/20 08:46 Aspirin Ec PO 81 mg DAILY SKIP Administration Atorvastatin Calcium 20 mg 01/12/20 21:00 01/17/20 21:13 Lipitor PO 20 mg HS SKIP Administration Carvedilol 37.5 mg 01/12/20 21:00 01/17/20 21:12 Coreg PO 37.5 mg Q12HR SKIP Administration Cilostazol 100 mg 01/12/20 16:30 01/18/20 05:52 Pletal PO 100 mg BIDAC SKIP Administration Cyanocobalamin 1,000 mcg 01/13/20 09:00 01/17/20 08:48 Vitamin B-12 Tab PO 1,000 mcg DAILY SKIP Administration Dextrose 12.5 gm 01/14/20 10:23 Dextrose 50% Syringe IV PUSH PRN PRN Hypoglycemia Protocol Docusate Sodium 100 mg 01/12/20 21:00 01/17/20 21:13 Colace Capsule PO 100 mg Q12HR SKIP Administration Epoetin Madhu 10,000 units 01/17/20 09:00 01/17/20 09:48 Epogen SUB-Q 10,000 units Mo@0900 SKIP Administration Ferrous Sulfate 324 mg 01/12/20 17:00 01/17/20 18:17 Ferrous Sulfate PO 324 mg BIDWM SKIP Administration Finasteride 5 mg 01/13/20 09:00 01/17/20 08:46 Proscar PO 5 mg DAILY SKIP Administration Fish Oil 1 gm 01/12/20 17:00 01/17/20 18:19 Lovaza PO 1 gm BID SKIP Administration Folic Acid 1 mg 01/13/20 09:00 01/17/20 08:49 Folic Acid PO 1 mg DAILY SKIP Administration Glucagon 1 mg 01/14/20 10:23 Glucagon For Inj IM PRN PRN Hypoglycemia Protocol Glucose 15 gm 01/14/20 10:23 Glutose 15 PO PRN PRN Hypoglycemia Protocol Heparin Sodium (Porcine) 5,000 units 01/14/20 21:00 01/17/20 21:13 Heparin Sodium SUB-Q 5,000 units Q12HR SKIP Administration Hydralazine HCl 50 mg 01/12/20 17:00 01/17/20 18:19 Apresoline Tablet PO 50 mg TID SKIP Administration Dextrose 1,000 mls @ 100 mls/hr 01/14/20 10:23 Dextrose 5% 1,000 Ml IVPB PRN PRN Hypoglycemia Protocol Insulin Aspart 2 - 5 units 01/14/20 12
[2020-01-18] MEDS: FERROUS SULFATE 324 MG TABLET PO ×2 (09:25→17:29)
[2020-01-18 09:26] VITALS: PULSE 86
[2020-01-18] MEDS: carvediloL 12.5 MG TABLET 37.5 MG PO ×2 (09:26→20:45)
[2020-01-18] MEDS: ASPIRIN 81 MG ENTERIC TABLET PO (09:26)
[2020-01-18] MEDS: AMLODIPINE BESYLATE 5 MG TABLET 10 MG PO (09:26)
[2020-01-18] MEDS: CHOLECALCIFEROL 1,000 UNIT TABLET 2000 UNITS PO (09:27)
[2020-01-18] MEDS: SENNA/DOCUSATE SODIUM TABLET 1 TAB PO (09:27)
[2020-01-18] MEDS: CYANOCOBALAMIN 1,000 MCG TABLET 1000 MCG PO (09:27)
[2020-01-18] MEDS: OMEGA 3 POLYUNSAT FATTY ACIDS 1 GM CAP PO ×2 (09:28→17:29)
[2020-01-18] MEDS: DOCUSATE SODIUM 100 MG CAPSULE PO ×2 (09:28→20:43)
[2020-01-18] MEDS: hydrALAZINE HCL 50 MG TABLET PO ×3 (09:28→17:30)
[2020-01-18] MEDS: FINASTERIDE 5 MG TABLET PO (09:28)
[2020-01-18] MEDS: FOLIC ACID 1 MG TABLET PO (09:28)
[2020-01-18] MEDS: predniSONE 5 MG TABLET PO (09:29)
[2020-01-18] MEDS: TAMSULOSIN HCL 0.4 MG CAPSULE PO (09:29)
[2020-01-18] MEDS: HEPARIN SODIUM 5,000 UNITS/ML VIAL 5000 UNITS SUB-Q ×2 (09:29→20:46)
[2020-01-18 12:25] LABS: Hematocrit 29.4 % (42.0-52.0); Mean Corpuscular HGB Conc 30.6 g/dl (32-36); Mean Corpuscular Hemoglobin 27.7 pg (26-34); Mean Corpuscular Volume 90.5 fl (80-100); Mean Platelet Volume 11.6 fl (7.4-10.4); Platelet Count Result 187 k/mm3 (150-375); Red Blood Count 3.25 M/mm3 (4.6-6.20); Red Cell Distribution Width 16.8 % (11.5-14.5); White Blood Count 9.3 K/mm3 (4.5-10.0)
[2020-01-18 12:29] LABS: Glucose Point of Care 147 (65-105)
[2020-01-18 12:32] LABS: Alveolar/Arterial O2 Gradient 23.9 mmHg; Base Excess ABG -1.9 mEq/l (+/-2.0); Fractional Inspired Oxygen 21 %; Oxygen Content ABG 13.1 %vol (16.0-22.0); Oxygen Saturation ABG 96.7 % (95.0-100.0); Oxyhemoglobin 95.3 % THb (90.0-100.0); PO2 ABG 85.1 mmHg (80.0-100.0); PO2 FiO2 Ratio Arterial Blood 4.05 %; Total Hemoglobin 9.7 g/dL (12.0-18.0); pH ABG 7.428 (7.350-7.450)
[2020-01-18 12:33] LABS: Device ROOM AIR; Modified Allen's Test Pass; Site Drawn RIGHT RADIAL
[2020-01-18 12:38] LABS: Alanine Aminotransferase 10 U/L (4-50); Albumin Level 3.1 g/dL (3.5-5.1); Alkaline Phosphatase 70 U/L (38-126); Aspartate Amino Transferase 17 U/L (17-59); Bilirubin,Total 0.4 mg/dL (0.2-1.3); Blood Urea Nitrogen 38 mg/dL (9-20); Calcium 8.8 mg/dL (8.4-10.2); Carbon Dioxide 22 mmol/L (22-30); Chloride 108 mmol/L (98-107); Estimated CRCL calculation 44 ml/min; Estimated Glomerular Filt Rate 34; Glucose 167 mg/dL (75-110); Potassium 4.6 mmol/L (3.4-5.0); Sodium 136 mmol/L (137-145)
--- NOTE | 2020-01-18 13:15 | PCDIET ---
Nutrition Follow-Up Complete: Nutrition Diagnosis: Suboptimal oral intake related to decreased appetite as evidenced by reported weight loss and variable intakes. Nutrition Goal: Patient to consume 75% of meals/supplements or greater. Goal met. Intakes 75-100% on diabetic diet which is appropriate. Patient continues on Hever supplement BID. Last recorded weight is 124.1 kg. Recommend obtaining new weight. Bowel Motility: Last documented BM on 01/16/20. Labs Reviewed: Glu (148) Meds Noted: Vitamin B12, Colace, Epogen, Novolog, Lantus, Ferrous Sulfate, Folic Acid, Prednisone, Vitamin D, Senokot Additional Notes: Left leg surgical incision. No other documented skin breakdown. Will continue to monitor with same goal. Nutrition Monitoring and Evaluation: Follow up every 5 days.
[2020-01-18 14:00] VITALS: BP 127/55; PULSE 83; RESP 18; TEMP 37.1; O2SAT 92
--- NOTE | 2020-01-18 15:15 | WPDNEURORHBP ---
Subjective Date/time seen: 01/18/20 15:15 Interval history: this 64-year-old gentleman is here after having had left BKA for underlying peripheral vascular disease and peripheral neuropathy he is improving overlying her complaining of increasing shortness of breath for which have consulted our hospitalist beside the shortness of breast which was present even before he came to us the patient denies any chest pain headache nausea vomiting chills fever sore throat Review of Systems Review of Systems: All systems reviewed & are unremarkable except as noted in HPI and below Functional Status Ambulation Ability Ability to Ambulate 10 Feet: Contact Guard Ambulation Assistive Devices: Walker, Standard Transfers Ability Ability to Transfer In/Out of Chair: Contact Guard Exam Const: General: comfortable and no acute distress HENMT: General nose exam: Normal nares present Mouth: Yes moist mucous membranes Eyes: General: appearance normal, both eyes and all related structures Neck: Neck: supple and no JVD Resp: Effort & Inspection: normal respiratory effort Auscultation: clear to auscultation bilaterally Cardio: Rate: regular rate Rhythm: regular rhythm GI: GI Palp: Yes Soft to palpation Auscultation: normal bowel sounds Skin: General skin exam: normal color and no rashes or lesions noted Neuro: Other: patient's mental status is normal cranial examination normal he does evidence of peripheral neuropathy and peripheral vascular disease of or evidence of the left BKA Extrem: Other: evidence of peripheral vascular disease and peripheral neuropathy along with left BKA Objective Data Vital Signs Vital Signs: Vital Signs - 24 hr 01/17/20 22:00 01/18/20 06:00 01/18/20 09:26 Temperature 37.3 C 37.9 C H Pulse Rate 83 86 86 Respiratory Rate 22 H 22 H Blood Pressure 150/66 H 148/69 H Pulse Oximetry 95 93 01/18/20 14:00 Temperature 37.1 C Pulse Rate 83 Respiratory Rate 18 Blood Pressure 127/55 L Pulse Oximetry 92 Intake/Output Intake/Output: Intake & Output 01/15/20 01/16/20 01/17/20 01/18/20 23:59 23:59 23:59 23:59 Intake Total 1260 1060 1320 660 Balance 1260 1060 1320 660 Meds/Results Medications: Active Medications Generic Name Dose Route Start Last Admin Trade Name Freq PRN Reason Stop Dose Admin Acetaminophen 500 mg 01/18/20 11:26 Tylenol Tablet PO Q6H PRN Mild Pain (1-3) or Fever Amlodipine Besylate 10 mg 01/13/20 09:00 01/18/20 09:26 Norvasc PO 10 mg DAILY SKIP Administration Aspirin 81 mg 01/13/20 09:00 01/18/20 09:26 Aspirin Ec PO 81 mg DAILY SKIP Administration Atorvastatin Calcium 20 mg 01/12/20 21:00 01/17/20 21:13 Lipitor PO 20 mg HS SKIP Administration Carvedilol 37.5 mg 01/12/20 21:00 01/18/20 09:26 Coreg PO 37.5 mg Q12HR SKIP Administration Cilostazol 100 mg 01/12/20 16:30 01/18/20 05:52 Pletal PO 100 mg BIDAC SKIP Administration Cyanocobalamin 1,000 mcg 01/13/20 09:00 01/18/20 09:27 Vitamin B-12 Tab PO 1,000 mcg DAILY SKIP Administration Dextrose 12.5 gm 01/14/20 10:23 Dextrose 50% Syringe IV PUSH PRN PRN Hypoglycemia Protocol Docusate Sodium 100 mg 01/12/20 21:00 01/18/20 09:28 Colace Capsule PO 100 mg Q12HR SKIP Administration Epoetin Madhu 10,000 units 01/17/20 09:00 01/17/20 09:48 Epogen SUB-Q 10,000 units Mo@0900 SKIP Administration Ferrous Sulfate 324 mg 01/12/20 17:00 01/18/20 09:25 Ferrous Sulfate PO 324 mg BIDWM SKIP Administration Finasteride 5 mg 01/13/20 09:00 01/18/20 09:28 Proscar PO 5 mg DAILY SKIP Administration Fish Oil 1 gm 01/12/20 17:00 01/18/20 09:28 Lovaza PO 1 gm BID SKIP Administration Folic Acid 1 mg 01/13/20 09:00 01/18/20 09:28 Folic Acid PO 1 mg DAILY SKIP Administration Glucagon 1 mg 01/14/20 10:23 Glucagon For Inj IM PRN PRN Hypoglycemia Protocol Gl
[2020-01-18 17:52] LABS: Glucose Point of Care 186 (65-105)
[2020-01-18 20:45] VITALS: PULSE 82
[2020-01-18] MEDS: ATORVASTATIN 20 MG TABLET PO (20:46)
[2020-01-18] MEDS: INSULIN GLARGINE (*BKC) 100 UNITS/ML 15 UNITS SUB-Q (20:46)
[2020-01-18 21:49] LABS: Glucose Point of Care 207 (65-105)
[2020-01-18 22:00] VITALS: BP 131/54; PULSE 88; RESP 18; TEMP 37.3; O2SAT 93
[2020-01-19 06:00] VITALS: BP 137/68; PULSE 82; RESP 18; TEMP 37.3; O2SAT 94
[2020-01-19] MEDS: cilostazoL 100 MG TABLET PO ×2 (06:10→17:03)
[2020-01-19 07:02] LABS: Glucose Point of Care 193 (65-105)
[2020-01-19] MEDS: FERROUS SULFATE 324 MG TABLET PO ×2 (09:47→17:03)
[2020-01-19] MEDS: AMLODIPINE BESYLATE 5 MG TABLET 10 MG PO (09:47)
[2020-01-19 09:48] VITALS: PULSE 84
[2020-01-19] MEDS: carvediloL 12.5 MG TABLET 37.5 MG PO ×2 (09:48→21:22)
[2020-01-19] MEDS: ASPIRIN 81 MG ENTERIC TABLET PO (09:48)
[2020-01-19] MEDS: CHOLECALCIFEROL 1,000 UNIT TABLET 2000 UNITS PO (09:50)
[2020-01-19] MEDS: CYANOCOBALAMIN 1,000 MCG TABLET 1000 MCG PO (09:50)
[2020-01-19] MEDS: FINASTERIDE 5 MG TABLET PO (09:51)
[2020-01-19] MEDS: FOLIC ACID 1 MG TABLET PO (09:51)
[2020-01-19] MEDS: HEPARIN SODIUM 5,000 UNITS/ML VIAL 5000 UNITS SUB-Q ×2 (09:51→21:21)
[2020-01-19] MEDS: SENNA/DOCUSATE SODIUM TABLET 1 TAB PO (09:51)
[2020-01-19] MEDS: TAMSULOSIN HCL 0.4 MG CAPSULE PO (09:52)
[2020-01-19] MEDS: predniSONE 5 MG TABLET PO (09:52)
[2020-01-19] MEDS: hydrALAZINE HCL 50 MG TABLET PO ×3 (09:52→17:03)
[2020-01-19] MEDS: OMEGA 3 POLYUNSAT FATTY ACIDS 1 GM CAP PO ×2 (09:52→17:04)
[2020-01-19 10:55] VITALS: BMI 39.2
[2020-01-19 12:07] LABS: Glucose Point of Care 188 (65-105)
[2020-01-19] MEDS: ACETAMINOPHEN 500 MG TABLET PO (12:26)
[2020-01-19 14:00] VITALS: BP 129/72; PULSE 79; RESP 18; TEMP 36.7; O2SAT 94
--- NOTE | 2020-01-19 14:06 | WPDNEURORHBP ---
Subjective Date/time seen: 01/19/20 14:06 Interval history: this 64-year-old gentleman is here with the left BKA his shortness of breath is much better between yesterday multiple testing was performed as per hospitalist and we are waiting for the input if there any further care is needed from that perspective otherwise he is doing fairly well his Lantus needs to be adjusted little bit more as sugars running around 200s he denies any headache nausea vomiting chest pain shortness of breath fever chills sore throat his creatinine is also better Review of Systems Review of Systems: All systems reviewed & are unremarkable except as noted in HPI and below Functional Status Ambulation Ability Ability to Ambulate 10 Feet: Standby Assistance Ambulation Assistive Devices: Walker, Standard Transfers Ability Ability to Transfer In/Out of Chair: Contact Guard Exam Const: General: comfortable and no acute distress HENMT: General nose exam: Normal nares present Mouth: Yes moist mucous membranes Eyes: General: appearance normal, both eyes and all related structures Neck: Neck: supple and no JVD Resp: Effort & Inspection: normal respiratory effort Auscultation: clear to auscultation bilaterally Cardio: Rate: regular rate Rhythm: regular rhythm GI: GI Palp: Yes Soft to palpation Auscultation: normal bowel sounds Skin: General skin exam: normal color and no rashes or lesions noted Neuro: Other: patient is awake alert well oriented time place and person were weakness he has in the lower extremities due to the left lower extremity BKA he does have evidence of peripheral neuropathy and peripheral vascular disease Extrem: Other: left BKA seems clean Psych: Mental Status: mental status grossly normal Objective Data Vital Signs Vital Signs: Vital Signs - 24 hr 01/18/20 20:45 01/18/20 22:00 01/19/20 06:00 Temperature 37.3 C 37.3 C Pulse Rate 82 88 82 Respiratory Rate 18 18 Blood Pressure 131/54 L 137/68 Pulse Oximetry 93 94 01/19/20 09:48 Temperature Pulse Rate 84 Respiratory Rate Blood Pressure Pulse Oximetry Intake/Output Intake/Output: Intake & Output 01/16/20 01/17/20 01/18/20 01/19/20 23:59 23:59 23:59 23:59 Intake Total 1060 1320 1380 780 Balance 1060 1320 1380 780 Meds/Results Medications: Active Medications Generic Name Dose Route Start Last Admin Trade Name Freq PRN Reason Stop Dose Admin Acetaminophen 500 mg 01/18/20 11:26 01/19/20 12:26 Tylenol Tablet PO 500 mg Q6H PRN Administration Mild Pain (1-3) or Fever Amlodipine Besylate 10 mg 01/13/20 09:00 01/19/20 09:47 Norvasc PO 10 mg DAILY SKIP Administration Aspirin 81 mg 01/13/20 09:00 01/19/20 09:48 Aspirin Ec PO 81 mg DAILY SKIP Administration Atorvastatin Calcium 20 mg 01/12/20 21:00 01/18/20 20:46 Lipitor PO 20 mg HS SKIP Administration Carvedilol 37.5 mg 01/12/20 21:00 01/19/20 09:48 Coreg PO 37.5 mg Q12HR SKIP Administration Cilostazol 100 mg 01/12/20 16:30 01/19/20 06:10 Pletal PO 100 mg BIDAC [facility] Administration Cyanocobalamin 1,000 mcg 01/13/20 09:00 01/19/20 09:50 Vitamin B-12 Tab PO 1,000 mcg DAILY [facility] Administration Dextrose 12.5 gm 01/14/20 10:23 Dextrose 50% Syringe IV PUSH PRN PRN Hypoglycemia Protocol Docusate Sodium 100 mg 01/12/20 21:00 01/19/20 10:00 Colace Capsule PO Not Given Q12HR [facility] Epoetin Madhu 10,000 units 01/17/20 09:00 01/17/20 09:48 Epogen SUB-Q 10,000 units Mo@0900 SKIP Administration Ferrous Sulfate 324 mg 01/12/20 17:00 01/19/20 09:47 Ferrous Sulfate PO 324 mg BIDWM SKIP Administration Finasteride 5 mg 01/13/20 09:00 01/19/20 09:51 Proscar PO 5 mg DAILY SKIP Administration Fish Oil 1 gm 01/12/20 17:00 01/19/20 09:52 Lovaza PO 1 gm BID SKIP Administration Folic Acid 1 mg 01/13/20 09:00 01/19/20 09:51 Folic Acid PO 1 mg [facility]UDRE[facility]
--- NOTE | 2020-01-19 15:12 | PM.IMCN ---
Assessment and Plan Assessment and plan (1) Dyspnea: Code(s): R06.00 - Dyspnea, unspecified Status: Acute Assessment and Plan: Consulted for dyspnea yesterday. Patient also had cough 2 days ago. These seems to be resolving. Possibly due to atelectasis s/p BKA and decreased ambulation. PNA less likely as patient is afebrile without leukocytosis and improvement of symptoms. VSS, afebrile today. Slight fever yesterday morning, which has resolved. Possibly aspect of volume overload as edema noted b/l LE although I am hesitant on giving diuretic given CKD/kidney transplant, elevated creatinine. PE felt to be less likely. Ordered IS, encouraged at bedside Consider Echo if not improved; will try to obtain records of an Echo if performed at [facility] during recent stay. There does not appear to be echo results in physical chart Will monitor CBC, BMP tomorrow If worsening respiratory status or marked worsened leukocytosis (daily prednisone noted) consider repeat CXR Monitor closely (2) Type 2 diabetes mellitus with hyperglycemia, with long-term current use of insulin: Code(s): E11.65 - Type 2 diabetes mellitus with hyperglycemia; Z79.4 - FPC (current) use of insulin Status: Acute Assessment and Plan: BGL in 100s with isolate reading in 200s today; adequate for hospital stay. Appears patient takes ozempic weekly and Humulin 50 u QAM and 25 units QHS at home Accuchecks ACHS, hypoglycemia protocol, correctional insulin, diabetic diet Agree with continuing 18 u lantus Qhs Monitor; adjust insulin as appropriate (3) Hyperlipidemia, acquired: Code(s): E78.5 - Hyperlipidemia, unspecified Status: Acute Assessment and Plan: LFTs WNL agree with continuing home statin (4) Chronic kidney disease, stage III (moderate): Code(s): N18.3 - Chronic kidney disease, stage 3 (moderate) Status: Acute Assessment and Plan: Cr 2.00 which is improvement from 2.40 earlier in stay. Patient has history of kidney transplant Monitor BMP tomorrow (5) History of left below knee amputation: Code(s): Z89.512 - Acquired absence of left leg below knee Status: Acute Assessment and Plan: Management/PT/OTper primary service (6) BPH loc w urin obs/LUTS: Code(s): N40.1 - Benign prostatic hyperplasia with lower urinary tract symptoms Status: Acute Assessment and Plan: Urology is following; management per Urology service (7) Hypertension: Code(s): I10 - Essential (primary) hypertension Status: Acute Assessment and Plan: BP 120s this afternoon Continue with home antihypertensives Additional Plan Thank you for allowing the Hospitalist team to care for this patient during their stay. We will continue to follow with you. Please call with any questions Collaborating physician for this Hospitalist Consult H&P is Dr. Spain DOS is 01/19/20 at roughly 2:45 pm HPI Data of Consult Consult date: 01/19/20 Requesting Physician: Juancarlos Benton MD Primary Care Provider: PHYSICIAN NOT ON STAFF Consult Narrative Narrative: Rigo Ogden is a 64 year old male with history of DMII with peripheral neuropathy, HTN, and recent osteomyelitis of left foot s/p left BKA on 01/04 at [facility] among several other comorbid conditions who is here at [facility] rehab center for further rehab; hospitalist service consulted for evaluation of shortness of breath. Patient states that he developed a cough 2 nights ago that was productive, but was unable to describe sputum as he swallowed the sputum. Yesterday he developed what sounds like orth
[2020-01-19] MEDS: INSULIN ASPART (*BKC) 100 UNITS/ML SUB-Q (17:12)
[2020-01-19 17:25] LABS: Glucose Point of Care 220 (65-105)
[2020-01-19 21:22] VITALS: PULSE 92
[2020-01-19] MEDS: ATORVASTATIN 20 MG TABLET PO (21:23)
[2020-01-19] MEDS: DOCUSATE SODIUM 100 MG CAPSULE PO (21:24)
[2020-01-19] MEDS: INSULIN GLARGINE (*BKC) 100 UNITS/ML 18 UNITS SUB-Q (21:25)
[2020-01-19 22:00] VITALS: BP 122/56; PULSE 99; RESP 20; TEMP 37.1; O2SAT 97
[2020-01-19 23:26] LABS: Glucose Point of Care 218 (65-105)
[2020-01-20 05:17] LABS: Basophils Percent Auto 0.1 % (0.2-1.2); Eosinophils Absolute Auto 0.3 K/mm3 (0-0.3); Eosinophils Percent Auto 3.2 % (0-4.4); Hematocrit 27.2 % (42.0-52.0); Hemoglobin 8.6 g/dL (14.0-18.0); Immature Granulocyte Absolute 0.05 K/mm3 (0.00-0.031); Immature Granulocyte Percent A 0.6 % (0-0.5); Lymphocytes Absolute Auto 2.84 K/mm3 (0.9-3.2); Lymphocytes Percent Auto 36.1 % (18.3-44.2); Mean Corpuscular HGB Conc 31.6 g/dl (32-36); Mean Corpuscular Volume 91.6 fl (80-100); Mean Platelet Volume 12.2 fl (7.4-10.4); Monocytes Absolute Auto 0.4 K/mm3 (0.1-0.6); Monocytes Percent Auto 5.6 % (2.6-8.5); Neutrophils Absolute Auto 4.3 K/mm3 (1.3-6.7); Neutrophils Percent Auto 54.4 % (45.5-73.1); Platelet Count Result 160 k/mm3 (150-375); Red Blood Count 2.97 M/mm3 (4.6-6.20); Red Cell Distribution Width 16.9 % (11.5-14.5); White Blood Count 7.9 K/mm3 (4.5-10.0)
[2020-01-20 05:28] LABS: Blood Urea Nitrogen 44 mg/dL (9-20); Calcium 8.7 mg/dL (8.4-10.2); Carbon Dioxide 25 mmol/L (22-30); Chloride 108 mmol/L (98-107); Estimated CRCL calculation 42 ml/min; Estimated Glomerular Filt Rate 32; Glucose 178 mg/dL (75-110); Magnesium 2.4 mg/dL (1.6-2.3); Potassium 4.5 mmol/L (3.4-5.0); Sodium 134 mmol/L (137-145)
[2020-01-20 06:00] VITALS: BP 156/66; PULSE 82; RESP 16; TEMP 36.9; O2SAT 95
[2020-01-20] MEDS: ACETAMINOPHEN 500 MG TABLET PO (06:24)
[2020-01-20] MEDS: cilostazoL 100 MG TABLET PO ×2 (06:25→16:55)
[2020-01-20 07:01] LABS: Glucose Point of Care 159 (65-105)
--- NOTE | 2020-01-20 07:23 | WPDUROPN2 ---
Progress Note: A&P Assessment and Plan (1) Acute urinary retention: Code(s): R33.8 - Other retention of urine Status: Acute Assessment and Plan: Patient has passed his voiding trial with flying colors. I would recommend staying on Flomax for at least 1-2 months. Subsequent to discharge we can see him in follow-up and make a determination as to long-term need at that point. Subjective Subjective Date/Time Seen: 01/20/20 07:23 Voiding well, no complaints. Tolerating Flomax. Review of Systems Cardiovascular: Cardiovascular: Denies chest pain, Denies lightheadedness, Denies palpitations and Denies dyspnea Respiratory: Respiratory: Denies dyspnea Gastrointestinal: Gastrointestinal: Denies diarrhea, Denies nausea and Denies vomiting Genitourinary: Genitourinary: Denies hematuria and Denies dysuria Endocrine: Endocrine: Denies palpitations Exam Const: General: no acute distress Resp: Effort & Inspection: normal respiratory effort GI: Inspection: non-distended GI Palp: No abdominal tenderness and No Guarding due to palpation present (GI) Auscultation: normal bowel sounds Objective Data Vital Signs Vital Signs: Vital Signs - 24 hr 01/19/20 09:48 01/19/20 14:00 01/19/20 21:22 Temperature 98.1 F Pulse Rate 84 79 92 Respiratory Rate 18 Blood Pressure 129/72 Pulse Oximetry 94 01/19/20 22:00 01/20/20 06:00 Temperature 98.7 F 98.5 F Pulse Rate 99 82 Respiratory Rate 20 16 Blood Pressure 122/56 L 156/66 H Pulse Oximetry 97 95 Intake/Output Intake/Output: Intake & Output 01/17/20 01/18/20 01/19/20 01/20/20 23:59 23:59 23:59 23:59 Intake Total 1320 1380 1140 Balance 1320 1380 1140 Meds/Results Medications: Active Medications Generic Name Dose Route Start Last Admin Trade Name Freq PRN Reason Stop Dose Admin Acetaminophen 500 mg 01/18/20 11:26 01/19/20 12:26 Tylenol Tablet PO 500 mg Q6H PRN Administration Mild Pain (1-3) or Fever Acetaminophen 500 mg 01/20/20 06:00 01/20/20 06:24 Tylenol Tablet PO 500 mg Q24H SKIP Administration Amlodipine Besylate 10 mg 01/13/20 09:00 01/19/20 09:47 Norvasc PO 10 mg DAILY SKIP Administration Aspirin 81 mg 01/13/20 09:00 01/19/20 09:48 Aspirin Ec PO 81 mg DAILY SKIP Administration Atorvastatin Calcium 20 mg 01/12/20 21:00 01/19/20 21:23 Lipitor PO 20 mg HS SKIP Administration Carvedilol 37.5 mg 01/12/20 21:00 01/19/20 21:22 Coreg PO 37.5 mg Q12HR SKIP Administration Cilostazol 100 mg 01/12/20 16:30 01/20/20 06:25 Pletal PO 100 mg BIDAC SKIP Administration Cyanocobalamin 1,000 mcg 01/13/20 09:00 01/19/20 09:50 Vitamin B-12 Tab PO 1,000 mcg DAILY SKIP Administration Dextrose 12.5 gm 01/14/20 10:23 Dextrose 50% Syringe IV PUSH PRN PRN Hypoglycemia Protocol Docusate Sodium 100 mg 01/12/20 21:00 01/19/20 21:24 Colace Capsule PO 100 mg Q12HR SKIP Administration Epoetin Madhu 10,000 units 01/17/20 09:00 01/17/20 09:48 Epogen SUB-Q 10,000 units Mo@0900 SKIP Administration Ferrous Sulfate 324 mg 01/12/20 17:00 01/19/20 17:03 Ferrous Sulfate PO 324 mg BIDWM SKIP Administration Finasteride 5 mg 01/13/20 09:00 01/19/20 09:51 Proscar PO 5 mg DAILY SKIP Administration Fish Oil 1 gm 01/12/20 17:00 01/19/20 17:04 Lovaza PO 1 gm BID SKIP Administration Folic Acid 1 mg 01/13/20 09:00 01/19/20 09:51 Folic Acid PO 1 mg DAILY SKIP Administration Glucagon 1 mg 01/14/20 10:23 Glucagon For Inj IM PRN PRN Hypoglycemia Protocol Glucose 15 gm 01/14/20 10:23 Glutose 15 PO PRN PRN Hypoglycemia Protocol Heparin Sodium (Porcine) 5,000 units 01/14/20 21:00 01/19/20 21:21 Heparin Sodium SUB-Q 5,000 units Q12HR SKIP Administration Hydralazine HCl 50 mg 01/12/20 17:00 01/19/20 17:03 Apresoline Tablet PO 50 mg
--- NOTE | 2020-01-20 07:25 | WPDURCON ---
Urology Consult Note HPI Date Seen: 01/20/20 Requesting Physician: Juancarlos Benton MD Primary Care Provider: PHYSICIAN NOT ON STAFF Consult Narrative Narrative: Rigo Ogden is a 64 year old male who is very well known to me, being seen in our office every 1-2 weeks. 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 Periodic Rodriguez he will request a voiding trial. Most recently that generally and is in severe urge incontinence with a subsequent request for replacement of his catheter. This last week he, again, requested a voiding trial. Subsequent to catheter removal he developed both daytime and nighttime urge incontinence. He is now back in. [facility] Past Medical History Medical History Amputation toe Atherosclerosis of both lower extremities with intermittent claudication Chronic kidney disease, stage III (moderate) Claudication Foot ulcer, left Glaucoma History of blood transfusion History of left below knee amputation Hyperlipidemia, acquired Hypertension Obesity STANLEY (obstructive sleep apnea) Osteomyelitis Type 2 diabetes mellitus with hyperglycemia, with long-term current use of insulin Surgical History Surgical History (Updated 01/19/20 @ 15:03 by Kevin Barreto PA-C) History of below-knee amputation left Kidney transplanted Renal transplant recipient Family History Family History Mother Family history of kidney disease Family history of obesity Hypertension Diabetes mellitus Sibling Family history of cataracts Diabetes mellitus Father Family history of heart disease in male family member before age 55 Family history of lung cancer Family history of congestive heart failure Hypertension Diabetes mellitus Social History Social History Smoking packs per day: 2 Smoking cigarettes per day: 40.0 Years smoked: 12 Smoking pack-years: 24.00 Smoking status: Former smoker Tobacco type: cigarettes Second hand tobacco smoke exposure: No Alcohol intake: current Drinks per week: 6 Substance use: never Substance use type: does not use Gender identity (if verbalized by the patient): Male Spiritual care concerns: No Meds Home Medications and Allergies Home Medications Medication Instructions Recorded Confirmed Type aspirin 81 mg tablet,delayed 81 mg PO DAILY 10/27/19 01/12/20 History release cholecalciferol (vitamin D3) 50 2,000 unit PO DAILY 10/27/19 01/12/20 History mcg (2,000 unit) chewable tablet cilostazol 100 mg tablet 100 mg PO BID 10/27/19 01/12/20 History omega-3 fatty acids 1,000 mg 1,000 mg PO BID 10/27/19 01/12/20 History capsule semaglutide 1 mg/dose (2 mg/1.5 1 mg SUB-Q WEEKLY 90 Days #9 ml 10/27/19 01/12/20 Rx mL) subcutaneous pen injector tacrolimus 1 mg capsule 1 mg PO BID 10/27/19 01/12/20 History amlodipine 10 mg PO DAILY 01/12/20 01/12/20 History atorvastatin 20 mg PO HS 01/12/20 01/12/20 History carvedilol 37.5 mg PO Q12H 01/12/20 01/12/20 History cyanocobalamin (vitamin B-12) 1,000 mcg PO DAILY 01/12/20 01/12/20 History docusate sodium 100 mg PO Q12H 01/12/20 01/12/20 History epoetin bhakti 10,000 unit SUBCUT WEEKLY 01/12/20 01/12/20 History ferrous sulfate 324 mg PO BIDWM 01/12/20 01/12/20 History finasteride 5 mg PO DAILY 01/12/20 01/12/20 History folic acid 1 mg PO DAILY 01/12/20 01/12/20 History hydralazine 50 mg PO TID 01/12/20 01/12/20 History insulin NPH isoph U-100 human 25 unit SUB-Q HS 01/12/20 01/12/20 History [Humulin N NPH Insulin KwikPen] insulin NPH isoph U-100 human 50 unit SUBCUT DAILY 01/12/20 01/12/20 History [Humulin N NPH U-100 Insulin] prednisone 5 mg PO DAILY 01/12/20 01/12/20 History sennosides-docusate sodium [Senna 1 tab-cap PO B
[2020-01-20] MEDS: FERROUS SULFATE 324 MG TABLET PO ×2 (07:56→16:55)
[2020-01-20] MEDS: AMLODIPINE BESYLATE 5 MG TABLET 10 MG PO (07:56)
[2020-01-20 07:57] VITALS: PULSE 82
[2020-01-20] MEDS: CHOLECALCIFEROL 1,000 UNIT TABLET 2000 UNITS PO (07:57)
[2020-01-20] MEDS: carvediloL 12.5 MG TABLET 37.5 MG PO ×2 (07:57→20:51)
[2020-01-20] MEDS: SENNA/DOCUSATE SODIUM TABLET 1 TAB PO (07:58)
[2020-01-20] MEDS: CYANOCOBALAMIN 1,000 MCG TABLET 1000 MCG PO (07:58)
[2020-01-20] MEDS: FINASTERIDE 5 MG TABLET PO (07:59)
[2020-01-20] MEDS: OMEGA 3 POLYUNSAT FATTY ACIDS 1 GM CAP PO ×2 (07:59→16:55)
[2020-01-20] MEDS: FOLIC ACID 1 MG TABLET PO (07:59)
[2020-01-20] MEDS: predniSONE 5 MG TABLET PO (07:59)
[2020-01-20] MEDS: hydrALAZINE HCL 50 MG TABLET PO ×3 (07:59→16:55)
[2020-01-20] MEDS: HEPARIN SODIUM 5,000 UNITS/ML VIAL 5000 UNITS SUB-Q ×2 (07:59→20:52)
[2020-01-20] MEDS: ASPIRIN 81 MG ENTERIC TABLET PO (08:00)
[2020-01-20] MEDS: TAMSULOSIN HCL 0.4 MG CAPSULE PO (08:00)
--- NOTE | 2020-01-20 09:07 | PM.IMPN ---
Progress Note: A&P Assessment and Plan (1) Dyspnea: Code(s): R06.00 - Dyspnea, unspecified Status: Acute Assessment and Plan: Hospitalist Service consulted for dyspnea. Patient also had cough 2 days ago. Patient had cough/orthopnea last night. Possibly due to atelectasis s/p BKA and decreased ambulation. Also possibly due to volume overload as edema noted b/l LE; patient denies history of CAD/CHF; he thinks possibly had Echo at [facility] within the past month. PNA less likely as patient is afebrile without leukocytosis. PE also felt to be less likely. VSS, afebrile Will do 20 mg Lasix PO once and reassess tomorrow Consider Echo tomorrow if not improved and/or we do not get records of Echo from [facility] which was ordered yesterday. Ordered IS, encouraged at bedside Will monitor BMP tomorrow If worsening respiratory status or marked worsened leukocytosis (daily prednisone noted) consider repeat CXR Monitor closely (2) Type 2 diabetes mellitus with hyperglycemia, with long-term current use of insulin: Code(s): E11.65 - Type 2 diabetes mellitus with hyperglycemia; Z79.4 - shelter (current) use of insulin Status: Acute Assessment and Plan: BGL 159 this morning; adequate for hospital stay. Appears patient takes ozempic weekly and Humulin 50 u QAM and 25 units QHS at home Accuchecks ACHS, hypoglycemia protocol, correctional insulin, diabetic diet Agree with continuing 18 u lantus Qhs Monitor; adjust insulin as appropriate (3) Hyperlipidemia, acquired: Code(s): E78.5 - Hyperlipidemia, unspecified Status: Acute Assessment and Plan: LFTs WNL agree with continuing home statin (4) Chronic kidney disease, stage III (moderate): Code(s): N18.3 - Chronic kidney disease, stage 3 (moderate) Status: Acute Assessment and Plan: Cr 2.10; slightly increased, but relatively stable. Patient has history of kidney transplant Monitor BMP tomorrow with diuresis today (5) History of left below knee amputation: Code(s): Z89.512 - Acquired absence of left leg below knee Status: Acute Assessment and Plan: Management/PT/OT per primary service (6) BPH loc w urin obs/LUTS: Code(s): N40.1 - Benign prostatic hyperplasia with lower urinary tract symptoms Status: Acute Assessment and Plan: Urology is following; management per Urology service Patient passed voiding trial (7) Hypertension: Code(s): I10 - Essential (primary) hypertension Status: Acute Assessment and Plan: BP 150s sys this morning Continue with home antihypertensives Additional Plan Thank you for allowing the Hospitalist team to care for this patient during their stay. We will continue to follow with you. Please call with any questions Subjective Date/time seen: 01/20/20 09:07 This is a Hospitalist Consult Progress Note Interval history: Patient is a 64 yo M with history of DMII with peripheral neuropathy, HTN, and recent osteomyelitis of left foot s/p left BKA on 01/04 at [facility] among several other comorbid conditions who is here at [facility] rehab center for further rehab; hospitalist service consulted for evaluation of shortness of breath. Patient states he has some coughing last night and some SOB while lying flat, but has since improved this morning. He still reports some swelling in the LE. No other complaints at the moment. Denies f/c/s,headaches, dizziness, lightheadedness, cp/palpitations, current sob/cough, n/v/d/c, abd pain, changes in BMs, dysuria, hematuria, cloudy urine, calf pain/swelling. Review of Systems Review of Systems: All systems reviewed & are
[2020-01-20] MEDS: FUROSEMIDE 20 MG TABLET PO (11:10)
--- NOTE | 2020-01-20 11:35 | WPDNEURORHBP ---
Subjective Date/time seen: 01/20/20 11:35 Interval history: this 64-year-old is here after having had the left [id number] amputation with underlying multiple medical issues he also has a neurogenic bladder and has been followed by the urologist for some time and now he has urge incontinence both day and night he denies any headache nausea vomiting chest pain shortness of breath fever chills sore throat Review of Systems Review of Systems: All systems reviewed & are unremarkable except as noted in HPI and below Functional Status Ambulation Ability Ability to Ambulate 10 Feet: Contact Guard Ambulation Assistive Devices: Walker, Standard Transfers Ability Ability to Transfer In/Out of Chair: Standby Assistance Exam Const: General: comfortable and no acute distress HENMT: General nose exam: Normal nares present Mouth: Yes moist mucous membranes Eyes: General: appearance normal, both eyes and all related structures Neck: Neck: supple and no JVD Resp: Effort & Inspection: normal respiratory effort Auscultation: clear to auscultation bilaterally Cardio: Rate: regular rate Rhythm: regular rhythm GI: GI Palp: Yes Soft to palpation Auscultation: normal bowel sounds Skin: General skin exam: normal color and no rashes or lesions noted Neuro: General: gait normal Speech: normal speech Extrem: Other: the patient is BKA site is clean and healthy Psych: Mental Status: mental status grossly normal Objective Data Vital Signs Vital Signs: Vital Signs - 24 hr 01/20/20 14:00 01/20/20 20:51 01/20/20 21:46 Temperature 36.8 C 37.2 C Pulse Rate 76 78 85 Respiratory Rate 20 20 Blood Pressure 131/57 L 138/59 L Pulse Oximetry 98 95 01/21/20 06:00 01/21/20 09:01 Temperature 37.3 C Pulse Rate 80 80 Respiratory Rate 18 Blood Pressure 152/65 H Pulse Oximetry 93 Intake/Output Intake/Output: Intake & Output 01/18/20 01/19/20 01/20/20 01/21/20 23:59 23:59 23:59 23:59 Intake Total 1380 1140 1440 480 Balance 1380 1140 1440 480 Meds/Results Medications: Active Medications Generic Name Dose Route Start Last Admin Trade Name Freq PRN Reason Stop Dose Admin Acetaminophen 500 mg 01/18/20 11:26 01/19/20 12:26 Tylenol Tablet PO 500 mg Q6H PRN Administration Mild Pain (1-3) or Fever Acetaminophen 500 mg 01/20/20 06:00 01/21/20 05:46 Tylenol Tablet PO 500 mg Q24H SKIP Administration Amlodipine Besylate 10 mg 01/13/20 09:00 01/21/20 09:00 Norvasc PO 10 mg DAILY SKIP Administration Aspirin 81 mg 01/13/20 09:00 01/21/20 09:01 Aspirin Ec PO 81 mg DAILY SKIP Administration Atorvastatin Calcium 20 mg 01/12/20 21:00 01/20/20 20:49 Lipitor PO 20 mg HS SKIP Administration Carvedilol 37.5 mg 01/12/20 21:00 01/21/20 09:01 Coreg PO 37.5 mg Q12HR SKIP Administration Cilostazol 100 mg 01/12/20 16:30 01/21/20 05:46 Pletal PO 100 mg BIDAC SKIP Administration Cyanocobalamin 1,000 mcg 01/13/20 09:00 01/21/20 09:01 Vitamin B-12 Tab PO 1,000 mcg DAILY SKIP Administration Dextrose 12.5 gm 01/14/20 10:23 Dextrose 50% Syringe IV PUSH PRN PRN Hypoglycemia Protocol Docusate Sodium 100 mg 01/12/20 21:00 01/20/20 20:52 Colace Capsule PO 100 mg Q12HR SKIP Administration Epoetin Madhu 10,000 units 01/17/20 09:00 01/17/20 09:48 Epogen SUB-Q 10,000 units Mo@0900 SKIP Administration Ferrous Sulfate 324 mg 01/12/20 17:00 01/21/20 08:59 Ferrous Sulfate PO 324 mg BIDWM SIKP Administration Finasteride 5 mg 01/13/20 09:00 01/21/20 09:02 Proscar PO 5 mg DAILY SKIP Administration Fish Oil 1 gm 01/12/20 17:00 01/21/20 09:02 Lovaza PO 1 gm BID SKIP Administration Folic Acid 1 mg 01/13/20 09:00 01/21/20 09:02 Folic Acid PO 1 mg DAILY SKIP Administration Glucagon 1 mg 01/14/20 10:23 Glucagon For Inj IM PRN PRN Hypoglycemia Protocol Gl
[2020-01-20 12:08] LABS: Glucose Point of Care 201 (65-105)
[2020-01-20] MEDS: INSULIN ASPART (*BKC) 100 UNITS/ML SUB-Q ×2 (12:28→16:55)
[2020-01-20] MEDS: DOCUSATE SODIUM 100 MG CAPSULE PO ×2 (12:28→20:52)
[2020-01-20 14:00] VITALS: BP 131/57; PULSE 76; RESP 20; TEMP 36.8; O2SAT 98
[2020-01-20 16:48] LABS: Glucose Point of Care 222 (65-105)
[2020-01-20] MEDS: ATORVASTATIN 20 MG TABLET PO (20:49)
[2020-01-20 20:51] VITALS: PULSE 78
[2020-01-20] MEDS: INSULIN GLARGINE (*BKC) 100 UNITS/ML 18 UNITS SUB-Q (20:53)
[2020-01-20 21:46] VITALS: BP 138/59; PULSE 85; RESP 20; TEMP 37.2; O2SAT 95
[2020-01-20 22:21] LABS: Glucose Point of Care 197 (65-105)
--- NOTE | 2020-01-21 | ECHO_ITS ---
Patient Info Name: Rigo Ogden Age: 64 years : 1955 Gender: Male Ht: 70 in Wt: 273 lbs BSA: 2.53 m2 HR: 80 bpm BP: 128 / 59 mmHg Technical Quality: Fair Exam Date: 01/21/2020 3:46 PM Exam Location: [facility] Pulmonary Patient Status: Inpatient Admit Date: 01/12/2020 Staff Ordering Physician: Kevin Barreto PA-C Resourcing Advisor: Leigh Buckley RDCS Attending Provider: Juancarlos Benton MD Referring Physician: Estevan PAYNE; Exam Type: CA echo doppler color flow Study Info Indications - cristine mast Complete two-dimensional, color flow and Doppler transthoracic echocardiogram is performed. Summary 1. Left ventricular chamber dimension is mildly enlarged. 2. Left ventricular systolic function is normal, estimated at 60-65%. 3. The left ventricular diastolic function is abnormal. 4. E/e' 20 is elevated. 5. Left atrial chamber dimension is moderately enlarged. 6. There is mild aortic valve sclerosis. 7. The mitral valve has severely calcified annulus. 8. There is mild mitral valve regurgitation. 9. There is trace tricuspid valve regurgitation. 10. Severe pulmonary hypertension, estimated pulmonary arterial systolic pressure is 65 mmHg. 11. Normal inferior vena cava with <50% collapse upon inspiration consistent with elevated right atrial pressure, 10 mmHg. Left Ventricle E/e' 20 is elevated. Left ventricular chamber dimension is mildly enlarged. Left ventricular systolic function is normal, estimated at 60-65%. The left ventricular diastolic function is abnormal. Right Ventricle Right ventricular chamber dimension is normal. Right ventricular systolic function is normal. Left Atria Left atrial chamber dimension is moderately enlarged. Right Atria Right atrial chamber dimension is normal. Aortic Valve The aortic valve is trileaflet. There is mild aortic valve sclerosis. There is no aortic valve stenosis. There is no aortic valve regurgitation. Pulmonic Valve There is no pulmonic regurgitation. Mitral Valve The mitral valve has severely calcified annulus. There is no mitral valve stenosis. There is mild mitral valve regurgitation. Tricuspid Valve There is trace tricuspid valve regurgitation. Severe pulmonary hypertension, estimated pulmonary arterial systolic pressure is 65 mmHg. Pericardium/Pleural There is no pericardial effusion. Inferior Vena Cava Normal inferior vena cava with <50% collapse upon inspiration consistent with elevated right atrial pressure, 10 mmHg. Aorta The aortic root size at the sinus of Valsalva is normal. Left Ventricular Outflow Tract Name Value Normal LVOT 2D LVOT Diameter 2.1 cm LVOT Doppler LVOT Peak Gradient 5 mmHg LVOT Mean Gradient 4 mmHg LVOT VTI 36 cm LVOT VTI/AV VTI Ratio 1.0 LVOT Stroke Volume 127 ml LVOT CO 19.0 l/min LVOT CI 7.5 l/min/m2 Pulmonic Valve
[2020-01-21] MEDS: ACETAMINOPHEN 500 MG TABLET PO (05:46)
[2020-01-21] MEDS: cilostazoL 100 MG TABLET PO ×2 (05:46→17:24)
[2020-01-21 06:00] VITALS: BP 152/65; PULSE 80; RESP 18; TEMP 37.3; O2SAT 93
[2020-01-21 06:23] LABS: Glucose Point of Care 163 (65-105)
[2020-01-21 06:43] LABS: Blood Urea Nitrogen 41 mg/dL (9-20); Calcium 8.6 mg/dL (8.4-10.2); Carbon Dioxide 25 mmol/L (22-30); Chloride 109 mmol/L (98-107); Estimated CRCL calculation 42 ml/min; Estimated Glomerular Filt Rate 32; Glucose 180 mg/dL (75-110); Magnesium 2.3 mg/dL (1.6-2.3); Potassium 4.4 mmol/L (3.4-5.0); Sodium 136 mmol/L (137-145)
--- NOTE | 2020-01-21 08:25 | P.PNIM_ITS ---
Progress Note: A&P Assessment and Plan (1) Dyspnea: Code(s): R06.00 - Dyspnea, unspecified Status: Acute Assessment and Plan: Hospitalist Service consulted for dyspnea. Patient also continues to have nighttime cough. Patient had cough/orthopnea again last night while lying down, suggesting orthopnea possibly due to volume overload. Possibly due to atelectasis s/p BKA and decreased ambulation. PNA less likely as patient is afebrile without leukocytosis. PE also felt to be less likely. VSS, afebrile. Echo results still not received from OSH. Patient thinks he urinated about the same, although exam shows possibly slight improvement in edema. * Will do 20 mg Lasix PO once and reassess tomorrow * Strict I/Os; unfortunately there has been not ideal documentation of urine output thus far. * Consider Echo tomorrow if not improved and/or we do not get records of Echo from [place] * Ordered IS, encouraged at bedside * Will monitor BMP tomorrow * If worsening respiratory status consider repeat CXR * Monitor closely (2) Type 2 diabetes mellitus with hyperglycemia, with long-term current use of insulin: Code(s): E11.65 - Type 2 diabetes mellitus with hyperglycemia; Z79.4 - longterm (current) use of insulin Status: Acute Assessment and Plan: BGL 180s this morning; adequate for hospital stay. Appears patient takes ozempic weekly and Humulin 50 u QAM and 25 units QHS at home * Accuchecks ACHS, hypoglycemia protocol, correctional insulin, diabetic diet * Agree with continuing 18 u lantus Qhs * Ozempic held * Monitor; adjust insulin as appropriate (3) Hyperlipidemia, acquired: Code(s): E78.5 - Hyperlipidemia, unspecified Status: Acute Assessment and Plan: LFTs WNL * agree with continuing home statin (4) Chronic kidney disease, stage III (moderate): Code(s): N18.3 - Chronic kidney disease, stage 3 (moderate) Status: Acute Assessment and Plan: Cr 2.10; stable. Patient has history of kidney transplant * Monitor BMP tomorrow with light diuresis again today (5) History of left below knee amputation: Code(s): Z89.512 - Acquired absence of left leg below knee Status: Acute Assessment and Plan: * Management/PT/OT per primary service (6) BPH loc w urin obs/LUTS: Code(s): N40.1 - Benign prostatic hyperplasia with lower urinary tract symptoms Status: Acute Assessment and Plan: * Urology is following; management per Urology service * Patient passed voiding trial (7) Hypertension: Code(s): I10 - Essential (primary) hypertension Status: Acute Assessment and Plan: BP 150s sys this morning * Continue with home antihypertensives Additional Plan Thank you for allowing the Hospitalist team to care for this patient during their stay. We will continue to follow with you. Please call with any questions Subjective Date/time seen: 01/21/20 08:25 This is a Hospitalist Consult Progress Note Interval history: Patient is a 64 yo M with history of DMII with peripheral neuropathy, HTN, and recent osteomyelitis of left foot s/p left BKA on 01/04 at [facility] among several other comorbid conditions who [facility]; hospitalist service consulted for evaluation of peter
--- NOTE | 2020-01-21 08:25 | PM.IMPN ---
Progress Note: A&P Assessment and Plan (1) Dyspnea: Code(s): R06.00 - Dyspnea, unspecified Status: Acute Assessment and Plan: Hospitalist Service consulted for dyspnea. Patient also continues to have nighttime cough. Patient had cough/orthopnea again last night while lying down, suggesting orthopnea possibly due to volume overload. Possibly due to atelectasis s/p BKA and decreased ambulation. PNA less likely as patient is afebrile without leukocytosis. PE also felt to be less likely. VSS, afebrile. Echo results still not received from OSH. Patient thinks he urinated about the same, although exam shows possibly slight improvement in edema. Will do 20 mg Lasix PO once and reassess tomorrow Strict I/Os; unfortunately there has been not ideal documentation of urine output thus far. 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 Appears patient takes ozempic weekly and Humulin 50 u QAM and 25 units QHS at home Accuchecks ACHS, hypoglycemia protocol, correctional insulin, diabetic diet Agree with continuing 18 u lantus Qhs Ozempic held Monitor; adjust insulin as appropriate (3) Hyperlipidemia, acquired: Code(s): E78.5 - Hyperlipidemia, unspecified Status: Acute Assessment and Plan: LFTs WNL agree with continuing home statin (4) Chronic kidney disease, stage III (moderate): Code(s): N18.3 - Chronic kidney disease, stage 3 (moderate) Status: Acute Assessment and Plan: Cr 2.10; stable. Patient has history of kidney transplant Monitor BMP tomorrow with light diuresis again today (5) History of left below knee amputation: Code(s): Z89.512 - Acquired absence of left leg below knee Status: Acute Assessment and Plan: Management/PT/OT per primary service (6) BPH loc w urin obs/LUTS: Code(s): N40.1 - Benign prostatic hyperplasia with lower urinary tract symptoms Status: Acute Assessment and Plan: Urology is following; management per Urology service Patient passed voiding trial (7) Hypertension: Code(s): I10 - Essential (primary) hypertension Status: Acute Assessment and Plan: BP 150s sys this morning Continue with home antihypertensives Additional Plan Thank you for allowing the Hospitalist team to care for this patient during their stay. We will continue to follow with you. Please call with any questions Subjective Date/time seen: 01/21/20 08:25 This is a Hospitalist Consult Progress Note Interval history: Patient is a 64 yo M with history of DMII with peripheral neuropathy, HTN, and recent osteomyelitis of left foot s/p left BKA on 01/04 at [facility] among several other comorbid conditions who is here at [facility] re[facility] for further rehab; hospitalist service consulted for evaluation of shortness of breath. Patient states he has some coughing last night and some SOB while lying flat, but has since improved this morning. He still reports some swelling in the LE. He does note that he received a lot of IVF while at [facility]. He still is not sure if he had an Echo performed at [facility] or [facility]. He continues to note his sympto
[2020-01-21] MEDS: FERROUS SULFATE 324 MG TABLET PO ×2 (08:59→17:24)
[2020-01-21] MEDS: AMLODIPINE BESYLATE 5 MG TABLET 10 MG PO (09:00)
[2020-01-21 09:01] VITALS: PULSE 80
[2020-01-21] MEDS: CHOLECALCIFEROL 1,000 UNIT TABLET 2000 UNITS PO (09:01)
[2020-01-21] MEDS: CYANOCOBALAMIN 1,000 MCG TABLET 1000 MCG PO (09:01)
[2020-01-21] MEDS: ASPIRIN 81 MG ENTERIC TABLET PO (09:01)
[2020-01-21] MEDS: carvediloL 12.5 MG TABLET 37.5 MG PO ×2 (09:01→21:47)
[2020-01-21] MEDS: hydrALAZINE HCL 50 MG TABLET PO ×3 (09:02→17:24)
[2020-01-21] MEDS: HEPARIN SODIUM 5,000 UNITS/ML VIAL 5000 UNITS SUB-Q ×2 (09:02→20:56)
[2020-01-21] MEDS: TAMSULOSIN HCL 0.4 MG CAPSULE PO (09:02)
[2020-01-21] MEDS: FOLIC ACID 1 MG TABLET PO (09:02)
[2020-01-21] MEDS: FINASTERIDE 5 MG TABLET PO (09:02)
[2020-01-21] MEDS: predniSONE 5 MG TABLET PO (09:02)
[2020-01-21] MEDS: OMEGA 3 POLYUNSAT FATTY ACIDS 1 GM CAP PO ×2 (09:02→17:24)
[2020-01-21] MEDS: SENNA/DOCUSATE SODIUM TABLET 1 TAB PO (09:03)
--- NOTE | 2020-01-21 11:42 | WPDNEURORHBP ---
Subjective Date/time seen: 01/21/20 11:42 Interval history: the patient is here after having at the left BKA he has been fairly decently controlled and getting the family training he denies any headache nausea vomiting fever chills sore throat Review of Systems Review of Systems: All systems reviewed & are unremarkable except as noted in HPI and below Functional Status Ambulation Ability Ability to Ambulate 10 Feet: Contact Guard Ambulation Assistive Devices: Walker, Standard Transfers Ability Ability to Transfer In/Out of Chair: Standby Assistance Exam Const: General: comfortable and no acute distress HENMT: General nose exam: Normal nares present Mouth: Yes moist mucous membranes Eyes: General: appearance normal, both eyes and all related structures Neck: Neck: supple and no JVD Resp: Effort & Inspection: normal respiratory effort Auscultation: clear to auscultation bilaterally Cardio: Rate: regular rate Rhythm: regular rhythm GI: GI Palp: Yes Soft to palpation Auscultation: normal bowel sounds : Other: the patient does have neurogenic bladder and has urge incontinence and has been followed by the urologist which he will do in future also was known him for some time Skin: General skin exam: normal color and no rashes or lesions noted Neuro: Other: patient is awake alert well oriented time place person speech and language functions are normal cranial exam shows normal the gait is improving and the left BKA stable Extrem: Other: left BKA looks clean and healthy Psych: Mental Status: mental status grossly normal Objective Data Vital Signs Vital Signs: Vital Signs - 24 hr 01/20/20 14:00 01/20/20 20:51 01/20/20 21:46 Temperature 36.8 C 37.2 C Pulse Rate 76 78 85 Respiratory Rate 20 20 Blood Pressure 131/57 L 138/59 L Pulse Oximetry 98 95 01/21/20 06:00 01/21/20 09:01 Temperature 37.3 C Pulse Rate 80 80 Respiratory Rate 18 Blood Pressure 152/65 H Pulse Oximetry 93 Intake/Output Intake/Output: Intake & Output 01/18/20 01/19/20 01/20/20 01/21/20 23:59 23:59 23:59 23:59 Intake Total 1380 1140 1440 480 Balance 1380 1140 1440 480 Meds/Results Medications: Active Medications Generic Name Dose Route Start Last Admin Trade Name Freq PRN Reason Stop Dose Admin Acetaminophen 500 mg 01/18/20 11:26 01/19/20 12:26 Tylenol Tablet PO 500 mg Q6H PRN Administration Mild Pain (1-3) or Fever Acetaminophen 500 mg 01/20/20 06:00 01/21/20 05:46 Tylenol Tablet PO 500 mg Q24H SKIP Administration Amlodipine Besylate 10 mg 01/13/20 09:00 01/21/20 09:00 Norvasc PO 10 mg DAILY SKIP Administration Aspirin 81 mg 01/13/20 09:00 01/21/20 09:01 Aspirin Ec PO 81 mg DAILY SKIP Administration Atorvastatin Calcium 20 mg 01/12/20 21:00 01/20/20 20:49 Lipitor PO 20 mg HS SKIP Administration Carvedilol 37.5 mg 01/12/20 21:00 01/21/20 09:01 Coreg PO 37.5 mg Q12HR SKIP Administration Cilostazol 100 mg 01/12/20 16:30 01/21/20 05:46 Pletal PO 100 mg BIDAC SKIP Administration Cyanocobalamin 1,000 mcg 01/13/20 09:00 01/21/20 09:01 Vitamin B-12 Tab PO 1,000 mcg DAILY SKIP Administration Dextrose 12.5 gm 01/14/20 10:23 Dextrose 50% Syringe IV PUSH PRN PRN Hypoglycemia Protocol Docusate Sodium 100 mg 01/12/20 21:00 01/20/20 20:52 Colace Capsule PO 100 mg Q12HR SKIP Administration Epoetin Madhu 10,000 units 01/17/20 09:00 01/17/20 09:48 Epogen SUB-Q 10,000 units Mo@0900 SKIP Administration Ferrous Sulfate 324 mg 01/12/20 17:00 01/21/20 08:59 Ferrous Sulfate PO 324 mg BIDWM SKIP Administration Finasteride 5 mg 01/13/20 09:00 01/21/20 09:02 Proscar PO 5 mg DAILY SKIP Administration Fish Oil 1 gm 01/12/20 17:00 01/21/20 09:02 Lovaza PO 1 gm BID SKIP Administration Folic Acid 1 mg 01/13/20 09:00 01/21/20 09:02 Folic Acid PO 1 mg D
[2020-01-21] MEDS: DOCUSATE SODIUM 100 MG CAPSULE PO ×2 (11:57→20:56)
[2020-01-21] MEDS: FUROSEMIDE 20 MG TABLET PO (11:58)
[2020-01-21 12:17] LABS: Glucose Point of Care 193 (65-105)
[2020-01-21 14:00] VITALS: BP 128/59; PULSE 80; RESP 20; TEMP 37.2; O2SAT 96
--- NOTE | 2020-01-21 14:28 | PCCCNOTE ---
On 01/21/20, the student, [Mil Swan ], provided care and completed [facility] documentation on this patient. I have reviewed the student's documentation and agree with the findings.
[2020-01-21 17:35] LABS: Glucose Point of Care 266 (65-105)
[2020-01-21] MEDS: INSULIN ASPART (*BKC) 100 UNITS/ML SUB-Q (17:50)
[2020-01-21] MEDS: INSULIN GLARGINE (*BKC) 100 UNITS/ML 18 UNITS SUB-Q (20:53)
[2020-01-21 20:56] LABS: Glucose Point of Care 233 (65-105)
[2020-01-21] MEDS: ATORVASTATIN 20 MG TABLET PO (20:56)
[2020-01-21 21:47] VITALS: PULSE 84
[2020-01-21 22:00] VITALS: BP 144/68; PULSE 84; RESP 19; TEMP 36.8; O2SAT 91
[2020-01-22 05:32] LABS: Blood Urea Nitrogen 39 mg/dL (9-20); Calcium 8.7 mg/dL (8.4-10.2); Carbon Dioxide 25 mmol/L (22-30); Chloride 110 mmol/L (98-107); Estimated CRCL calculation 42 ml/min; Estimated Glomerular Filt Rate 32; Glucose 225 mg/dL (75-110); Magnesium 2.3 mg/dL (1.6-2.3); Potassium 4.4 mmol/L (3.4-5.0); Sodium 137 mmol/L (137-145)
[2020-01-22 06:00] VITALS: BP 152/65; PULSE 80; RESP 19; TEMP 37.3; O2SAT 92
[2020-01-22] MEDS: cilostazoL 100 MG TABLET PO ×2 (06:20→18:22)
[2020-01-22] MEDS: ACETAMINOPHEN 500 MG TABLET PO (06:20)
[2020-01-22 07:16] LABS: Glucose Point of Care 195 (65-105)
--- NOTE | 2020-01-22 08:58 | PM.IMPN ---
Progress Note: A&P Assessment and Plan (1) Dyspnea: Code(s): R06.00 - Dyspnea, unspecified Status: Acute Assessment and Plan: Hospitalist Service consulted for dyspnea. Patient also continues to have nighttime cough. Patient had cough/orthopnea again last night while lying down, suggesting orthopnea possibly due to volume overload. Possibly due to atelectasis s/p BKA and decreased ambulation. PNA less likely as patient is afebrile without leukocytosis. PE also felt to be less likely. VSS, afebrile. Echo performed yesterday shows normal LVEF, diastolic dysfunction, and severe PH with pressure of 65 mmHg. Likely due to untreated STANLEY. Patient willing to attempt CPAP fitting tonight. Understands the need to follow up with his former Eligibility Specialist or any simulation educator promptly after discharge for further testing/management Will do 20 mg Lasix PO once and reassess tomorrow as patient still has LE pitting edema; slowly improving Strict I/Os; unfortunately there has been not ideal documentation of urine output thus far. Ordered IS, encouraged at bedside Will monitor BMP tomorrow CPAP ordered for hospital stay Monitor closely (2) STANLEY (obstructive sleep apnea): Code(s): G47.33 - Obstructive sleep apnea (adult) (pediatric) Status: Acute Assessment and Plan: As above, patient intolerant and has not been using CPAP for the last 10 years at least. Our pulmonology service was offered, but he stated he wishes to follow up with his former simulation educator at this time, but will let me know if he changes his mind. Open to attempting CPAP tonight CPAP ordered for tonight (3) Severe pulmonary arterial systolic hypertension: Code(s): I27.21 - Secondary pulmonary arterial hypertension Status: Acute Assessment and Plan: 65 mmHg noted on Echo yesterday. Likely lung related (group 3 classification) and more likely related to untreated STANLEY. COPD less likely but does have distant significant smoking history. CPAP encouraged and patient willing to try CPAP tonight CPAP Patient knows to follow up with Pulmonology after discharge for further work up/management (4) Type 2 diabetes mellitus with hyperglycemia, with long-term current use of insulin: Code(s): E11.65 - Type 2 diabetes mellitus with hyperglycemia; Z79.4 - half-way (current) use of insulin Status: Acute Assessment and Plan: BGL 190s this morning; adequate for hospital stay, although a bit high yesterday into the 200s. Appears patient takes ozempic weekly and Humulin 50 u QAM and 25 units QHS at home Accuchecks ACHS, hypoglycemia protocol, correctional insulin, diabetic diet Agree with continuing 18 u lantus Qhs; consider increasing long acting if continued elevated BGL Ozempic held Monitor; adjust insulin as appropriate (5) Hyperlipidemia, acquired: Code(s): E78.5 - Hyperlipidemia, unspecified Status: Acute Assessment and Plan: LFTs WNL agree with continuing home statin (6) Chronic kidney disease, stage III (moderate): Code(s): N18.3 - Chronic kidney disease, stage 3 (moderate) Status: Acute Assessment and Plan: Cr 2.10; stable. Patient has history of kidney transplant Monitor BMP tomorrow with light diuresis again today (7) History of left below knee amputation: Code(s): Z89.512 - Acquired absence of left leg below knee Status: Acute Assessment and Plan: Management/PT/OT per primary service (8) BPH loc w urin obs/LUTS: Code(s): N40.1 - Benign prostatic hyperplasia with lower urinary tract symptoms Status: Acute Assessment and Plan: Urology is following; management per Urology serv
[2020-01-22] MEDS: FERROUS SULFATE 324 MG TABLET PO ×2 (09:33→18:22)
[2020-01-22] MEDS: AMLODIPINE BESYLATE 5 MG TABLET 10 MG PO (09:33)
[2020-01-22] MEDS: ASPIRIN 81 MG ENTERIC TABLET PO (09:33)
[2020-01-22] MEDS: CHOLECALCIFEROL 1,000 UNIT TABLET 2000 UNITS PO (09:33)
[2020-01-22] MEDS: FOLIC ACID 1 MG TABLET PO (09:33)
[2020-01-22 09:34] VITALS: PULSE 80
[2020-01-22] MEDS: SENNA/DOCUSATE SODIUM TABLET 1 TAB PO (09:34)
[2020-01-22] MEDS: carvediloL 12.5 MG TABLET 37.5 MG PO ×2 (09:34→21:08)
[2020-01-22] MEDS: CYANOCOBALAMIN 1,000 MCG TABLET 1000 MCG PO (09:34)
[2020-01-22] MEDS: TAMSULOSIN HCL 0.4 MG CAPSULE PO (09:35)
[2020-01-22] MEDS: hydrALAZINE HCL 50 MG TABLET PO ×3 (09:35→18:21)
[2020-01-22] MEDS: HEPARIN SODIUM 5,000 UNITS/ML VIAL 5000 UNITS SUB-Q ×2 (09:35→21:08)
[2020-01-22] MEDS: OMEGA 3 POLYUNSAT FATTY ACIDS 1 GM CAP PO ×2 (09:35→18:22)
[2020-01-22] MEDS: predniSONE 5 MG TABLET PO (09:35)
[2020-01-22] MEDS: FINASTERIDE 5 MG TABLET PO (09:36)
[2020-01-22] MEDS: DOCUSATE SODIUM 100 MG CAPSULE PO ×2 (09:39→21:10)
[2020-01-22] MEDS: FUROSEMIDE 20 MG TABLET PO (10:31)
[2020-01-22 12:25] LABS: Glucose Point of Care 206 (65-105)
[2020-01-22] MEDS: INSULIN ASPART (*BKC) 100 UNITS/ML SUB-Q ×2 (13:20→18:20)
[2020-01-22 14:00] VITALS: BP 135/58; PULSE 77; RESP 18; TEMP 36.9; O2SAT 95
[2020-01-22 17:35] LABS: Glucose Point of Care 294 (65-105)
[2020-01-22 21:08] VITALS: PULSE 80
[2020-01-22] MEDS: ATORVASTATIN 20 MG TABLET PO (21:09)
[2020-01-22] MEDS: INSULIN GLARGINE (*BKC) 100 UNITS/ML 18 UNITS SUB-Q (21:14)
[2020-01-22 21:24] LABS: Glucose Point of Care 249 (65-105)
[2020-01-22 22:00] VITALS: BP 145/63; PULSE 85; RESP 19; TEMP 37.2; O2SAT 92
[2020-01-23 05:22] LABS: Blood Urea Nitrogen 43 mg/dL (9-20); Calcium 8.8 mg/dL (8.4-10.2); Carbon Dioxide 26 mmol/L (22-30); Chloride 109 mmol/L (98-107); Estimated CRCL calculation 42 ml/min; Estimated Glomerular Filt Rate 32; Glucose 250 mg/dL (75-110); Magnesium 2.2 mg/dL (1.6-2.3); Potassium 4.3 mmol/L (3.4-5.0); Sodium 138 mmol/L (137-145)
[2020-01-23] MEDS: cilostazoL 100 MG TABLET PO ×2 (05:33→17:55)
[2020-01-23] MEDS: ACETAMINOPHEN 500 MG TABLET PO (05:34)
[2020-01-23 06:00] VITALS: BP 149/71; PULSE 83; RESP 19; TEMP 36.8; O2SAT 95
[2020-01-23 06:23] LABS: Glucose Point of Care 232 (65-105)
[2020-01-23] MEDS: INSULIN ASPART (*BKC) 100 UNITS/ML SUB-Q ×2 (09:40→17:54)
[2020-01-23] MEDS: FINASTERIDE 5 MG TABLET PO (09:40)
[2020-01-23] MEDS: FERROUS SULFATE 324 MG TABLET PO ×2 (09:45→17:55)
[2020-01-23] MEDS: CHOLECALCIFEROL 1,000 UNIT TABLET 2000 UNITS PO (09:45)
[2020-01-23 09:46] VITALS: PULSE 83
[2020-01-23] MEDS: CYANOCOBALAMIN 1,000 MCG TABLET 1000 MCG PO (09:46)
[2020-01-23] MEDS: SENNA/DOCUSATE SODIUM TABLET 1 TAB PO (09:46)
[2020-01-23] MEDS: AMLODIPINE BESYLATE 5 MG TABLET 10 MG PO (09:46)
[2020-01-23] MEDS: carvediloL 12.5 MG TABLET 37.5 MG PO ×2 (09:46→21:40)
[2020-01-23] MEDS: ASPIRIN 81 MG ENTERIC TABLET PO (09:46)
[2020-01-23] MEDS: FOLIC ACID 1 MG TABLET PO (09:47)
[2020-01-23] MEDS: HEPARIN SODIUM 5,000 UNITS/ML VIAL 5000 UNITS SUB-Q ×2 (09:47→21:36)
[2020-01-23] MEDS: DOCUSATE SODIUM 100 MG CAPSULE PO ×2 (09:47→21:37)
[2020-01-23] MEDS: hydrALAZINE HCL 50 MG TABLET PO ×3 (09:48→17:55)
[2020-01-23] MEDS: OMEGA 3 POLYUNSAT FATTY ACIDS 1 GM CAP PO ×2 (09:48→17:56)
[2020-01-23] MEDS: predniSONE 5 MG TABLET PO (09:48)
[2020-01-23] MEDS: TAMSULOSIN HCL 0.4 MG CAPSULE PO (09:48)
--- NOTE | 2020-01-23 10:27 | PM.IMPN ---
Progress Note: A&P Assessment and Plan (1) Dyspnea: Code(s): R06.00 - Dyspnea, unspecified Status: Acute Assessment and Plan: Hospitalist Service consulted for dyspnea. Patient also complained of nighttime cough. Patient thinks cough/SOB has improved. Suspected orthopnea possibly due to volume overload. Possibly due to atelectasis s/p BKA and decreased ambulation. PNA less likely as patient is afebrile without leukocytosis. PE also felt to be less likely. VSS, afebrile. Echo performed earlier in stay shows normal LVEF, diastolic dysfunction, and severe PH with pressure of 65 mmHg. Likely due to untreated STANLEY. Patient tolerated CPAP last night. Wishes to see a Fabricator Art[employer] Breast here at [facility] Will do 40 mg Lasix PO once and reassess tomorrow as patient still has LE pitting edema; stable from yesterday Strict I/Os Encourage IS Will monitor BMP tomorrow CPAP ordered for hospital stay Consult placed for Pulmonology for further input and est care Monitor closely (2) STANLEY (obstructive sleep apnea): Code(s): G47.33 - Obstructive sleep apnea (adult) (pediatric) Status: Acute Assessment and Plan: Patient historically intolerant to CPAP and had not been using CPAP for the last 10 years at least. Tolerated CPAP well last night for at least 6 hours. Wishes to see Fabricator Artificial Breast here CPAP ordered for tonight Pulmonology consult placed; appreciate recommendations (3) Severe pulmonary arterial systolic hypertension: Code(s): I27.21 - Secondary pulmonary arterial hypertension Status: Acute Assessment and Plan: 65 mmHg noted on Echo earlier in stay. Likely lung related (group 3 classification) and more likely related to untreated STANLEY. COPD less likely but does have distant significant smoking history. 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 Appears patient takes ozempic weekly and Humulin 50 u QAM and 25 units QHS at home Accuchecks ACHS, hypoglycemia protocol, correctional insulin, diabetic diet Will increase long acting to 20 u lantus Qhs Ozempic held Monitor; adjust insulin as appropriate (5) Hyperlipidemia, acquired: Code(s): E78.5 - Hyperlipidemia, unspecified Status: Acute Assessment and Plan: LFTs WNL agree with continuing home statin (6) Chronic kidney disease, stage III (moderate): Code(s): N18.3 - Chronic kidney disease, stage 3 (moderate) Status: Acute Assessment and Plan: Cr 2.10; stable. Patient has history of kidney transplant Monitor BMP tomorrow with diuresis again today (7) History of left below knee amputation: Code(s): Z89.512 - Acquired absence of left leg below knee Status: Acute Assessment and Plan: Management/PT/OT per primary service (8) BPH loc w urin obs/LUTS: Code(s): N40.1 - Benign prostatic hyperplasia with lower urinary tract symptoms Status: Acute Assessment and Plan: Urology is following; management per Urology service Patient passed voiding trial (9) Hypertension: Code(s): I10 - Essential (primary) hypertension Status: Acute Assessment and Plan: BP 140s sys this morning. Continue with home antihypertensives Monitor Additional Plan Thank you for allowing the Hospitalist team to care for this patient during their stay. We wi
[2020-01-23] MEDS: FUROSEMIDE 40 MG TABLET PO (10:58)
[2020-01-23 13:05] LABS: Glucose Point of Care 198 (65-105)
[2020-01-23 14:00] VITALS: BP 145/50; PULSE 81; RESP 22; TEMP 36.8; O2SAT 97
--- NOTE | 2020-01-23 14:28 | WPDNEURORHBP ---
Subjective Date/time seen: S/P left BKA forosteomyelitis with non healing ischemic ulcer,DM,neuropathy,,chronic renal disease , with renal [id number]/21/20 14:28 Review of Systems Review of Systems: All systems reviewed & are unremarkable except as noted in HPI and below Functional Status Ambulation Ability Ability to Ambulate 10 Feet: Contact Guard Ambulation Assistive Devices: Walker, Standard Transfers Ability Ability to Transfer In/Out of Chair: Standby Assistance Exam Const: General: no acute distress HENMT: Head: normal to inspection Ears: hearing grossly normal bilaterally Eyes: General: appearance normal, both eyes and all related structures Neck: Neck: full ROM Resp: Effort & Inspection: normal respiratory effort Auscultation: clear to auscultation bilaterally Cardio: Rate: regular rate Rhythm: regular rhythm GI: Percussion: Yes normal to percussion Skin: General skin exam: no rashes or lesions noted Neuro: General: patient oriented x3 and moves all extremities Cranial nerves: Yes CN's II-XII intact bilaterally, Yes Equal, round and reactive pupils present, Yes Bilaterally intact EOM present, Yes Midline tongue present, Yes Ability to bilaterally rotate head present and Yes Ability to bilaterally elevate shoulders present Speech: normal speech Gait exam (Neuro): Unable to assess gait Motor exam (neuro): Abnormal motor strength present (lower extremities) Sensory Exam: Sensory deficit (Neuro) Deep tendon reflexes (DTR's): Right triceps reflex intensity grade: 1+, Left triceps reflex intensity grade: 1+, Rt Biceps (C5, C6): 1+, Left biceps reflex intensity grade: 1+, Right brachioradialis reflex intensity grade: 1+, Left brachioradialis reflex intensity grade: 1+, Right patellar reflex intensity grade: 0 and Right ankle reflex intensity grade: 0 Plantar Reflex Responses: downgoing: right Coordination: [id number] test normal Extrem: General: normal to inspection Psych: Appearance: grossly normal Objective Data Vital Signs Vital Signs: Vital Signs - 24 hr 01/22/20 21:08 01/22/20 22:00 01/23/20 06:00 Temperature 37.2 C 36.8 C Pulse Rate 80 85 83 Respiratory Rate 19 19 Blood Pressure 145/63 H 149/71 H Pulse Oximetry 92 95 01/23/20 09:46 Temperature Pulse Rate 83 Respiratory Rate Blood Pressure Pulse Oximetry Intake/Output Intake/Output: Intake & Output 01/20/20 01/21/20 01/22/20 01/23/20 23:59 23:59 23:59 23:59 Intake Total 1440 1740 840 900 Output Total 750 1500 1800 Balance 1440 990 -660 -900 Meds/Results Medications: Active Medications Generic Name Dose Route Start Last Admin Trade Name Freq PRN Reason Stop Dose Admin Acetaminophen 500 mg 01/18/20 11:26 01/19/20 12:26 Tylenol Tablet PO 500 mg Q6H PRN Administration Mild Pain (1-3) or Fever Acetaminophen 500 mg 01/20/20 06:00 01/23/20 05:34 Tylenol Tablet PO 500 mg Q24H SKIP Administration Amlodipine Besylate 10 mg 01/13/20 09:00 01/23/20 09:46 Norvasc PO 10 mg DAILY SKIP Administration Aspirin 81 mg 01/13/20 09:00 01/23/20 09:46 Aspirin Ec PO 81 mg DAILY SKIP Administration Atorvastatin Calcium 20 mg 01/12/20 21:00 01/22/20 21:09 Lipitor PO 20 mg HS SKIP Administration Carvedilol 37.5 mg 01/12/20 21:00 01/23/20 09:46 Coreg PO 37.5 mg Q12HR SKIP Administration Cilostazol 100 mg 01/12/20 16:30 01/23/20 05:33 Pletal PO 100 mg BIDAC SKIP Administration Cyanocobalamin 1,000 mcg 01/13/20 09:00 01/23/20 09:46 Vitamin B-12 Tab PO 1,000 mcg DAILY SKIP Administration Dextrose 12.5 gm 01/14/20 10:23 Dextrose 50% Syringe IV PUSH PRN PRN Hypoglycemia Protocol Docusate Sodium 100 mg 01/12/20 21:00 01/23/20 09:47 Colace Capsule PO 100 mg Q12HR SKIP Administration Epoetin Madhu 10,000 units 01/17/20 09:00 01/17/20 09:48 Epogen SUB-Q 10,000 units Mo@0900 SKIP Administration To
[2020-01-23 17:27] LABS: Glucose Point of Care 293 (65-105)
[2020-01-23 20:30] LABS: Glucose Point of Care 263 (65-105)
[2020-01-23] MEDS: INSULIN GLARGINE (*BKC) 100 UNITS/ML 20 UNITS SUB-Q (21:38)
[2020-01-23] MEDS: ATORVASTATIN 20 MG TABLET PO (21:39)
[2020-01-23 21:40] VITALS: PULSE 77
[2020-01-23 22:00] VITALS: BP 141/63; PULSE 85; RESP 22; TEMP 37.6; O2SAT 92
[2020-01-23 22:50] VITALS: PULSE 81; RESP 12; O2SAT 95
[2020-01-24] VITALS (7 sets, daily range): BP systolic 145–155; BP diastolic 63–74; PULSE 79–87; RESP 16–22; TEMP 36.9–37.3; O2SAT 94–98
[2020-01-24 05:08] LABS: Blood Urea Nitrogen 43 mg/dL (9-20); Calcium 8.6 mg/dL (8.4-10.2); Carbon Dioxide 26 mmol/L (22-30); Chloride 109 mmol/L (98-107); Estimated CRCL calculation 44 ml/min; Estimated Glomerular Filt Rate 34; Glucose 230 mg/dL (75-110); Magnesium 2.1 mg/dL (1.6-2.3); Potassium 4.3 mmol/L (3.4-5.0); Sodium 138 mmol/L (137-145)
[2020-01-24] MEDS: cilostazoL 100 MG TABLET PO ×2 (05:51→17:46)
[2020-01-24] MEDS: ACETAMINOPHEN 500 MG TABLET PO (05:51)
[2020-01-24 06:44] LABS: Glucose Point of Care 222 (65-105)
[2020-01-24] MEDS: OMEGA 3 POLYUNSAT FATTY ACIDS 1 GM CAP PO ×2 (08:52→17:48)
[2020-01-24] MEDS: AMLODIPINE BESYLATE 5 MG TABLET 10 MG PO (08:52)
[2020-01-24] MEDS: CYANOCOBALAMIN 1,000 MCG TABLET 1000 MCG PO (08:52)
[2020-01-24] MEDS: predniSONE 5 MG TABLET PO (08:52)
[2020-01-24] MEDS: FOLIC ACID 1 MG TABLET PO (08:52)
[2020-01-24] MEDS: carvediloL 12.5 MG TABLET 37.5 MG PO ×2 (08:52→20:50)
[2020-01-24] MEDS: TAMSULOSIN HCL 0.4 MG CAPSULE PO (08:52)
[2020-01-24] MEDS: SENNA/DOCUSATE SODIUM TABLET 1 TAB PO (08:52)
[2020-01-24] MEDS: FINASTERIDE 5 MG TABLET PO (08:52)
[2020-01-24] MEDS: ASPIRIN 81 MG ENTERIC TABLET PO (08:52)
[2020-01-24] MEDS: FERROUS SULFATE 324 MG TABLET PO ×2 (08:53→17:47)
[2020-01-24] MEDS: hydrALAZINE HCL 50 MG TABLET PO ×3 (08:53→17:48)
[2020-01-24] MEDS: CHOLECALCIFEROL 1,000 UNIT TABLET 2000 UNITS PO (08:53)
[2020-01-24] MEDS: EPOETIN ALFA 10,000 UNITS/ML VIAL 10000 UNITS SUB-Q (08:54)
[2020-01-24] MEDS: HEPARIN SODIUM 5,000 UNITS/ML VIAL 5000 UNITS SUB-Q ×2 (08:54→20:50)
[2020-01-24] MEDS: INSULIN ASPART (*BKC) 100 UNITS/ML SUB-Q ×3 (08:58→17:49)
[2020-01-24] MEDS: DOCUSATE SODIUM 100 MG CAPSULE PO ×2 (08:58→20:53)
--- NOTE | 2020-01-24 09:37 | PM.IMPN ---
Progress Note: A&P Assessment and Plan (1) Dyspnea: Code(s): R06.00 - Dyspnea, unspecified Status: Acute Assessment and Plan: Hospitalist Service consulted for dyspnea. Patient also complained of nighttime cough. Patient thinks cough/SOB has improved. Suspected orthopnea possibly due to volume overload. Possibly due to atelectasis s/p BKA and decreased ambulation. PNA less likely as patient is afebrile without leukocytosis. PE also felt to be less likely. VSS, afebrile. Echo performed earlier in stay shows normal LVEF, diastolic dysfunction, and severe PH with pressure of 65 mmHg. Likely due to untreated STANLEY. Patient tolerated CPAP again last night. Wishes to see a Dimmer Board Operator here at [facility] Will do another 40 mg Lasix PO once and reassess tomorrow as patient still has LE pitting edema; stable from yesterday Strict I/Os Encourage IS Will monitor BMP tomorrow CPAP ordered for hospital stay Consult placed for Pulmonology for further input and est care; appreciate recommendations Monitor closely (2) STANLEY (obstructive sleep apnea): Code(s): G47.33 - Obstructive sleep apnea (adult) (pediatric) Status: Acute Assessment and Plan: Patient historically intolerant to CPAP and had not been using CPAP for the last 10 years at least. Tolerated CPAP well again last night for at least 6 hours. Wishes to see Dimmer Board Operator here CPAP ordered for tonight Pulmonology consult placed; appreciate recommendations (3) Severe pulmonary arterial systolic hypertension: Code(s): I27.21 - Secondary pulmonary arterial hypertension Status: Acute Assessment and Plan: 65 mmHg noted on Echo earlier in stay. Likely lung related (group 3 classification) and more likely related to untreated STANLEY. COPD less likely, although does have distant significant smoking history. CPAP encouraged again today Pulm consult placed as above (4) Type 2 diabetes mellitus with hyperglycemia, with long-term current use of insulin: Code(s): E11.65 - Type 2 diabetes mellitus with hyperglycemia; Z79.4 - nursing home (current) use of insulin Status: Acute Assessment and Plan: BGL 200s this morning. Appears patient takes ozempic weekly and Humulin 50 u QAM and 25 units QHS at home Accuchecks ACHS, hypoglycemia protocol, correctional insulin, diabetic diet Will continue long acting to 20 u lantus Qhs; consider adding mealtime insulin Ozempic held Monitor; adjust insulin as appropriate (5) Hyperlipidemia, acquired: Code(s): E78.5 - Hyperlipidemia, unspecified Status: Acute Assessment and Plan: LFTs WNL agree with continuing home statin (6) Chronic kidney disease, stage III (moderate): Code(s): N18.3 - Chronic kidney disease, stage 3 (moderate) Status: Acute Assessment and Plan: Cr 2.00; stable. Patient has history of kidney transplant Monitor BMP tomorrow with diuresis again today (7) History of left below knee amputation: Code(s): Z89.512 - Acquired absence of left leg below knee Status: Acute Assessment and Plan: Management/PT/OT per primary service (8) BPH loc w urin obs/LUTS: Code(s): N40.1 - Benign prostatic hyperplasia with lower urinary tract symptoms Status: Acute Assessment and Plan: Urology is following; management per Urology service Patient passed voiding trial (9) Hypertension: Code(s): I10 - Essential (primary) hypertension Status: Acute Assessment and Plan: BP 150s sys this morning. Continue with home antihypertensives Monitor Additional Plan Thank
[2020-01-24 12:11] LABS: Glucose Point of Care 218 (65-105)
--- NOTE | 2020-01-24 12:30 | PCCDE ---
diabetes education f/up: Lantus has been increased to 20 units @ HS; BG range last 24hr has been 198-293mg/dl Spoke with DI Brown; will likely discharge on home insulin regimen of NPH. Met with pt; pt sts he was put on NPH years ago d/t cost but pt sts willing consider other options at this time as things have changed. Reviewed basal bolus regimen with long acting and rapid acting insulin and pros/cons of each regimen. Pt is very willing to consider but he does have quite a bit of NPH at home and would like to use that up. In addition he has endo appt coming up February 27 and changes can be made at that time. Pt notes he has been testing with a Prodigy BG meter but that his insurance company sent him a Livongo meter but he has not started using yet. Explained the benefits of Livongo and encouraged to start using SARA. Encouraged to test QID for 1-2 weeks after discharge and send to endo for review. Encouraged that this process will be much easier with Livongo. Reviewed pre meal BG target range. Pt asked about Continuous Glucose monitors; explained how they work, benefits and Medicare coverage. Provided Diabetes Management book with educator contact info.
[2020-01-24] MEDS: FUROSEMIDE 40 MG TABLET PO (12:42)
[2020-01-24 16:51] LABS: Glucose Point of Care 243 (65-105)
[2020-01-24] MEDS: INSULIN GLARGINE (*BKC) 100 UNITS/ML 20 UNITS SUB-Q (20:48)
[2020-01-24] MEDS: ATORVASTATIN 20 MG TABLET PO (20:50)
[2020-01-24 22:07] LABS: Glucose Point of Care 239 (65-105)
[2020-01-25] VITALS (7 sets, daily range): BP systolic 117–141; BP diastolic 50–66; PULSE 73–82; RESP 13–20; TEMP 36.8–37.6; O2SAT 90–97
[2020-01-25 05:25] LABS: Blood Urea Nitrogen 38 mg/dL (9-20); Calcium 8.7 mg/dL (8.4-10.2); Carbon Dioxide 27 mmol/L (22-30); Chloride 109 mmol/L (98-107); Estimated CRCL calculation 42 ml/min; Estimated Glomerular Filt Rate 32; Glucose 176 mg/dL (75-110); Sodium 139 mmol/L (137-145)
[2020-01-25] MEDS: ACETAMINOPHEN 500 MG TABLET PO (06:17)
[2020-01-25 06:57] LABS: Glucose Point of Care 139 (65-105)
--- NOTE | 2020-01-25 10:10 | PM.IMPN ---
Progress Note: A&P Assessment and Plan (1) Dyspnea: Code(s): R06.00 - Dyspnea, unspecified Status: Acute Assessment and Plan: Hospitalist Service consulted for dyspnea. Patient also complained of nighttime cough. Patient thinks cough/SOB has improved. Suspected orthopnea possibly due to volume overload. Possibly due to atelectasis s/p BKA and decreased ambulation. PNA less likely as patient is afebrile without leukocytosis. PE also felt to be less likely. VSS, afebrile. Echo performed earlier in stay shows normal LVEF, diastolic dysfunction, and severe PH with pressure of 65 mmHg. Likely due to untreated STANLEY. Patient tolerated CPAP again last night. Wishes to see a Disease Case Manager here at [facility] Will continue 40 mg Lasix daily PO while here and after discharge. His Cr has remained stable with diuresis. Will order Winston Hose to be placed to right lower extremity. Strict I/Os Encourage IS Will monitor BMP/Mag tomorrow CPAP ordered for hospital stay Consult placed for Pulmonology for further input and est care; appreciate recommendations Monitor closely (2) STANLEY (obstructive sleep apnea): Code(s): G47.33 - Obstructive sleep apnea (adult) (pediatric) Status: Acute Assessment and Plan: Patient historically intolerant to CPAP and had not been using CPAP for the last 10 years at least. Tolerated CPAP well again last night for at least 6 hours. Wishes to see Disease Case Manager here CPAP ordered for tonight Pulmonology consult placed; appreciate recommendations (3) Severe pulmonary arterial systolic hypertension: Code(s): I27.21 - Secondary pulmonary arterial hypertension Status: Acute Assessment and Plan: 65 mmHg noted on Echo earlier in stay. Likely lung related (group 3 classification) and more likely related to untreated STANLEY. COPD less likely, although does have distant significant smoking history. 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 Appears patient takes ozempic weekly and Humulin 50 u QAM and 25 units QHS at home Accuchecks ACHS, hypoglycemia protocol, correctional insulin, diabetic diet Will continue long acting to 20 U lantus Qhs; consider adding mealtime insulin Ozempic held Monitor; adjust insulin as appropriate (5) Hyperlipidemia, acquired: Code(s): E78.5 - Hyperlipidemia, unspecified Status: Acute Assessment and Plan: LFTs WNL agree with continuing home statin (6) Chronic kidney disease, stage III (moderate): Code(s): N18.3 - Chronic kidney disease, stage 3 (moderate) Status: Acute Assessment and Plan: Cr 2.10; stable. Patient has history of kidney transplant Monitor BMP tomorrow with diuresis again tomorrow (7) History of left below knee amputation: Code(s): Z89.512 - Acquired absence of left leg below knee Status: Acute Assessment and Plan: Management/PT/OT per primary service Will have home health upon discharge (8) BPH loc w urin obs/LUTS: Code(s): N40.1 - Benign prostatic hyperplasia with lower urinary tract symptoms Status: Acute Assessment and Plan: Urology is following; management per Urology service Patient passed voiding trial (9) Hypertension: Code(s): I10 - Essential (primary) hypertension Status: Acute Assessment and Plan: BP 150s sys this morning. Continu
[2020-01-25] MEDS: AMLODIPINE BESYLATE 5 MG TABLET 10 MG PO (11:26)
[2020-01-25] MEDS: FOLIC ACID 1 MG TABLET PO (11:27)
[2020-01-25] MEDS: TAMSULOSIN HCL 0.4 MG CAPSULE PO (11:27)
[2020-01-25] MEDS: OMEGA 3 POLYUNSAT FATTY ACIDS 1 GM CAP PO ×2 (11:27→17:26)
[2020-01-25] MEDS: FINASTERIDE 5 MG TABLET PO (11:27)
[2020-01-25] MEDS: HEPARIN SODIUM 5,000 UNITS/ML VIAL 5000 UNITS SUB-Q ×2 (11:27→21:09)
[2020-01-25] MEDS: cilostazoL 100 MG TABLET PO ×2 (11:28→17:27)
[2020-01-25] MEDS: FERROUS SULFATE 324 MG TABLET PO ×2 (11:28→17:26)
[2020-01-25] MEDS: carvediloL 12.5 MG TABLET 37.5 MG PO ×2 (11:28→21:11)
[2020-01-25] MEDS: predniSONE 5 MG TABLET PO (11:29)
[2020-01-25] MEDS: ASPIRIN 81 MG ENTERIC TABLET PO (11:29)
[2020-01-25] MEDS: hydrALAZINE HCL 50 MG TABLET PO ×2 (11:29→17:26)
[2020-01-25] MEDS: CHOLECALCIFEROL 1,000 UNIT TABLET 2000 UNITS PO (11:30)
[2020-01-25] MEDS: CYANOCOBALAMIN 1,000 MCG TABLET 1000 MCG PO (11:30)
[2020-01-25] MEDS: SENNA/DOCUSATE SODIUM TABLET 1 TAB PO (11:30)
[2020-01-25] MEDS: DOCUSATE SODIUM 100 MG CAPSULE PO ×2 (11:31→21:12)
[2020-01-25 12:00] LABS: Glucose Point of Care 166 (65-105)
--- NOTE | 2020-01-25 12:05 | PM.CNPUL ---
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 - recommend increasing diuretic dose of lasix to 80 mg PO Qam and adding metolazone 2.5 mg PO daily. He is still significant volume overloaded. - needs outpatient sleep study and CPAP treatment. I will arrange this for him. Note he cannot nasal pillows and needs full face mask. - f/u with us as outpatient. History of Present Illness History of Present Illness Consult date: 01/25/20 Chief complaint: Left BKA Narrative: 64 y/o male who's addmited to rehab s/p Left BKA. He was short of breath during rehab which prompted a work up including CXR and Echo. CXR showed evidence of mild pulmonary vascular congestion and Echo severe pulmonary hypertenison with an estimated RSVP of 65 mm Hg. It also showed significant diastolic dysfunction and enlarged/dilated left atrium. He has a history of STANLEY diagnosed 10-12 years ago but has not worn CPAP since then. He denies any history of lung disease, dyspnea but claims he's had pneumonia on a few occasions. He has a 24 pack year smoking history but quit about 35 years ago and has no significant occupational risk factors. He does have orthopnea and sleeps in a reclined position but says he's been doing that for a long time. He denies chest pain or cough, fever, chills or night sweats. His other medical history includes PVD, DM II, CKD, hyperlipidemia, HTN. Review of Systems Review of Systems: All systems reviewed & are unremarkable except as noted in HPI and below PMFSH Past Medical History Medical History Amputation toe Atherosclerosis of both lower extremities with intermittent claudication Chronic kidney disease, stage III (moderate) Claudication Foot ulcer, left Glaucoma History of blood transfusion History of left below knee amputation Hyperlipidemia, acquired Hypertension Obesity STANLEY (obstructive sleep apnea) Osteomyelitis Type 2 diabetes mellitus with hyperglycemia, with long-term current use of insulin Surgical History Surgical History (Updated 01/19/20 @ 15:03 by Kevin Barreto PA-C) History of below-knee amputation left Kidney transplanted Renal transplant recipient Family History Family History Mother Family history of kidney disease Family history of obesity Hypertension Diabetes mellitus Sibling Family history of cataracts Diabetes mellitus Father Family history of heart disease in male family member before age 55 Family history of lung cancer Family history of congestive heart failure Hypertension Diabetes mellitus Social History Social History Smoking packs per day: 2 Smoking cigarettes per day: 40.0 Years smoked: 12 Smoking pack-years: 24.00 Smoking status: Former smoker Tobacco type: cigarettes Second hand tobacco smoke exposure: No Alcohol intake: current Drinks per week: 6 Substance use: never Substance use type: does not use Gender identity (if verbalized by the patient): Male Spiritual care concerns: No Meds Home Medications and Allergies Home Medications Medication Instructions Recorded Confirmed Type aspirin 81 mg tablet,delayed 81 mg PO DAILY 10/27/19 01/12/20 History release cholecalciferol (vitamin D3) 50 2,000 unit PO DAILY 10/27/19 01/12/20 History mcg (2,000 unit) chewable tablet cilostazol 100 mg tablet 100 mg PO BID 10/27/19 01/12/20 History omega-3 fatty acids 1,000 mg 1,000 mg PO BID 10/27/19 01/12/20 History capsule semaglutide 1 mg/dose (2 mg/1.5 1 mg SUB-Q WEEKLY 90
--- NOTE | 2020-01-25 12:13 | WPDNEURORHBP ---
Subjective Date/time seen: 01/25/20 12:13 Interval history: this 64-year-old gentleman is here with the diagnosis of left BKA. He has completed his rehab and will be discharged tomorrow I have recommended him to have a cardiology follow-up based on his echocardiogram and so also follow-up with the surgeon and the follow-up with the primary care physician The patient denies any headache nausea vomiting chest pain or shortness of breath. He has longstanding sleep apnea however quite intolerant to CPAP he was able to tolerate some while here in the hospital and has been recommended to use it a pulmonary consult was put in by the hospitalist but he has not been seen by 1 but he can certainly follow up with the prolonged wrist as an outpatient Review of Systems Review of Systems: All systems reviewed & are unremarkable except as noted in HPI and below Functional Status Ambulation Ability Ability to Ambulate 10 Feet: Standby Assistance Ambulation Assistive Devices: Walker, Standard Transfers Ability Ability to Transfer In/Out of Chair: Independent Exam Const: General: comfortable and no acute distress HENMT: General nose exam: Normal nares present Mouth: Yes moist mucous membranes Eyes: General: appearance normal, both eyes and all related structures Neck: Neck: supple and no JVD Resp: Effort & Inspection: normal respiratory effort Auscultation: clear to auscultation bilaterally Cardio: Rate: regular rate Rhythm: regular rhythm GI: GI Palp: Yes Soft to palpation Auscultation: normal bowel sounds Skin: General skin exam: normal color and no rashes or lesions noted Neuro: Other: patient is awake alert and well oriented time place and person his generalized weakness and overall neurological status has improved Extrem: Other: the left BKA has serous drainage however overall looks good he needs to follow-up with the surgeon Psych: Mental Status: mental status grossly normal Objective Data Vital Signs Vital Signs: Vital Signs - 24 hr 01/24/20 14:00 01/24/20 22:00 01/24/20 22:51 Temperature 37.1 C 36.9 C Pulse Rate 87 80 83 Respiratory Rate 20 16 16 Blood Pressure 155/74 H 145/63 H Pulse Oximetry 97 98 96 01/25/20 03:02 01/25/20 06:00 01/25/20 11:28 Temperature 37.6 C H Pulse Rate 82 73 73 Respiratory Rate 15 16 Blood Pressure 136/66 Pulse Oximetry 96 90 Intake/Output Intake/Output: Intake & Output 01/22/20 01/23/20 01/24/20 01/25/20 23:59 23:59 23:59 23:59 Intake Total 1120 1780 1070 240 Output Total 1500 2500 1600 Balance -380 -031 -530 240 Meds/Results Medications: Active Medications Generic Name Dose Route Start Last Admin Trade Name Freq PRN Reason Stop Dose Admin Acetaminophen 500 mg 01/18/20 11:26 01/19/20 12:26 Tylenol Tablet PO 500 mg Q6H PRN Administration Mild Pain (1-3) or Fever Acetaminophen 500 mg 01/20/20 06:00 01/25/20 06:17 Tylenol Tablet PO 500 mg Q24H SKIP Administration Amlodipine Besylate 10 mg 01/13/20 09:00 01/25/20 11:26 Norvasc PO 10 mg DAILY SKIP Administration Aspirin 81 mg 01/13/20 09:00 01/25/20 11:29 Aspirin Ec PO 81 mg DAILY SKIP Administration Atorvastatin Calcium 20 mg 01/12/20 21:00 01/24/20 20:50 Lipitor PO 20 mg HS SKIP Administration Carvedilol 37.5 mg 01/12/20 21:00 01/25/20 11:28 Coreg PO 37.5 mg Q12HR SKIP Administration Cilostazol 100 mg 01/12/20 16:30 01/25/20 11:28 Pletal PO 100 mg BIDAC SKIP Administration Cyanocobalamin 1,000 mcg 01/13/20 09:00 01/25/20 11:30 Vitamin B-12 Tab PO 1,000 mcg DAILY SKIP Administration Dextrose 12.5 gm 01/14/20 10:23 Dextrose 50% Syringe IV PUSH PRN PRN Hypoglycemia Protocol Docusate Sodium 100 mg 01/12/20 21:00 01/25/20 11:31 Colace Capsule PO 100 mg Q12HR SKIP Administration Epoetin Madhu 10,000 units 01/17/20 09:00 01/24/20 08:54 Epogen SUB-Q 10,000 units Mo@090
--- NOTE | 2020-01-25 12:35 | PCDIET ---
Nutrition Follow-Up Complete: Nutrition Diagnosis: Suboptimal oral intake related to decreased appetite as evidenced by reported weight loss and variable intakes. Nutrition Goal: Patient to consume 75% of meals/supplements or greater. Goal met. Patient consuming 100% of meals on diabetic diet. Receiving Hever BID. Reports taking it some of the time, but does not want to decrease frequency at this time, as he will try to drink most of them. Last recorded weight is 124.1 kg. Recommend obtaining new weight. Bowel Motility: Last documented BM on 01/24/20. Labs Reviewed: Glu (176), BUN (38), Cr (2.1) Meds Noted: Vitamin B12, Colace, Epogen, Ferrous Sulfate, Folic Acid, Lovaza, Vitamin D, Senna, Prednisone, Lantus, Novolog Additional Notes: Left leg incision post-BKA. No other skin issues documented. Will continue to monitor with same goal. Nutrition Monitoring and Evaluation: Follow up every 7 days.
[2020-01-25] MEDS: FUROSEMIDE 40 MG TABLET PO (14:21)
[2020-01-25 17:18] LABS: Glucose Point of Care 249 (65-105)
[2020-01-25] MEDS: INSULIN ASPART (*BKC) 100 UNITS/ML SUB-Q (17:30)
[2020-01-25] MEDS: ATORVASTATIN 20 MG TABLET PO (21:11)
[2020-01-25] MEDS: INSULIN GLARGINE (*BKC) 100 UNITS/ML 20 UNITS SUB-Q (21:12)
[2020-01-25 22:44] LABS: Glucose Point of Care 260 (65-105)
[2020-01-26 05:33] LABS: Blood Urea Nitrogen 46 mg/dL (9-20); Calcium 8.6 mg/dL (8.4-10.2); Carbon Dioxide 26 mmol/L (22-30); Chloride 107 mmol/L (98-107); Estimated CRCL calculation 46 ml/min; Estimated Glomerular Filt Rate 36; Glucose 217 mg/dL (75-110); Magnesium 1.9 mg/dL (1.6-2.3); Potassium 4.3 mmol/L (3.4-5.0); Sodium 136 mmol/L (137-145)
[2020-01-26] MEDS: cilostazoL 100 MG TABLET PO (05:54)
[2020-01-26] MEDS: ACETAMINOPHEN 500 MG TABLET PO (05:54)
[2020-01-26 06:00] VITALS: BP 134/65; PULSE 79; RESP 20; TEMP 37.2; O2SAT 95
[2020-01-26 06:32] LABS: Glucose Point of Care 216 (65-105)
[2020-01-26 08:00] VITALS: PULSE 79; RESP 20; O2SAT 95
[2020-01-26] MEDS: hydrALAZINE HCL 50 MG TABLET PO ×2 (08:59→12:39)
[2020-01-26] MEDS: FINASTERIDE 5 MG TABLET PO (08:59)
[2020-01-26] MEDS: FOLIC ACID 1 MG TABLET PO (08:59)
[2020-01-26] MEDS: TAMSULOSIN HCL 0.4 MG CAPSULE PO (08:59)
[2020-01-26] MEDS: CYANOCOBALAMIN 1,000 MCG TABLET 1000 MCG PO (08:59)
[2020-01-26] MEDS: OMEGA 3 POLYUNSAT FATTY ACIDS 1 GM CAP PO (08:59)
[2020-01-26] MEDS: FUROSEMIDE 40 MG TABLET PO (08:59)
[2020-01-26 09:00] VITALS: PULSE 79
[2020-01-26] MEDS: carvediloL 12.5 MG TABLET 37.5 MG PO (09:00)
[2020-01-26] MEDS: FERROUS SULFATE 324 MG TABLET PO (09:00)
[2020-01-26] MEDS: ASPIRIN 81 MG ENTERIC TABLET PO (09:00)
[2020-01-26] MEDS: HEPARIN SODIUM 5,000 UNITS/ML VIAL 5000 UNITS SUB-Q (09:00)
[2020-01-26] MEDS: AMLODIPINE BESYLATE 5 MG TABLET 10 MG PO (09:00)
[2020-01-26] MEDS: DOCUSATE SODIUM 100 MG CAPSULE PO (09:01)
[2020-01-26] MEDS: CHOLECALCIFEROL 1,000 UNIT TABLET 2000 UNITS PO (09:01)
[2020-01-26] MEDS: predniSONE 5 MG TABLET PO (09:01)
[2020-01-26] MEDS: SENNA/DOCUSATE SODIUM TABLET 1 TAB PO (09:01)
[2020-01-26] MEDS: INSULIN ASPART (*BKC) 100 UNITS/ML SUB-Q ×2 (09:02→12:38)
--- NOTE | 2020-01-26 09:52 | PM.IMPN ---
Progress Note: A&P Assessment and Plan (1) Diastolic CHF, acute: Code(s): I50.31 - Acute diastolic (congestive) heart failure Status: Acute Assessment and Plan: Hospitalist Service consulted for dyspnea. Patient also complained of nighttime cough. Patient thinks cough/SOB has improved. Suspected orthopnea possibly due to volume overload. Possibly due to atelectasis s/p BKA and decreased ambulation. PNA less likely as patient is afebrile without leukocytosis. PE also felt to be less likely. VSS, afebrile. Echo performed earlier in stay shows normal LVEF, diastolic dysfunction, and severe PH with pressure of 65 mmHg. Likely due to untreated STANLEY. Patient tolerated CPAP again last night. Wishes to see a Yard Worker here at [facility] Pulmonology evaluated the patient increasing his diuretics to, Lasix 80 mg in the morning and metolazone 2.5 mg daily. I am concerned since the patient has a history of kidney transplant and CKD that this would be too much of an increase of his medications and would end up causing renal issues. At this time he has been diuresing slowly but his symptoms are improving. Urine output has been good with negative fluid balance daily I discussed everything with Dr. Peralta my attending physician who recommended continuing the Lasix 40 mg daily and adding Lasix 20 mg around 2:00 p.m. for further diuresis at home and upon discharge. I will recheck a BMP in 2 days and have him follow-up with his primary care provider for further evaluation. I called his primary care provider, nurse practitioner Ana García, in [place], [place] who states that the patient has not followed up with her in the last few years and only sees a specialist. She is aware the patient and will be monitoring his BMP upon discharge and recommend him following up in the office within the next 1 week. Will order Winston Hose to be placed to right lower extremity. 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 Tolerated CPAP well again last night for at least 6 hours. Wishes to see Yard Worker here Patient states he wore his CPAP for about 3 hours last night. He will need to follow-up with pulmonology within the next week for further evaluation an outpatient sleep study to be ordered. (3) Severe pulmonary arterial systolic hypertension: Code(s): I27.21 - Secondary pulmonary arterial hypertension Status: Acute Assessment and Plan: 65 mmHg noted on Echo earlier in stay. Likely lung related (group 3 classification) and more likely related to untreated STANLEY. COPD less likely, although does have distant significant smoking history. See above (4) Type 2 diabetes mellitus with hyperglycemia, with long-term current use of insulin: Code(s): E11.65 - Type 2 diabetes mellitus with hyperglycemia; Z79.4 - jail (current) use of insulin Status: Acute Assessment and Plan: BGL elevated at 234 this morning. Appears patient takes ozempic weekly and Humulin 50 u QAM and 25 units QHS at home Continue home medications. (5) Hyperlipidemia, acquired: Code(s): E78.5 - Hyperlipidemia, unspecified Status: Acute Assessment and Plan: LFTs WNL agree with continuing home statin (6) Chronic kidney disease, stage III (moderate): Code(s): N18.3 - Chronic kidney disease, stage 3 (moderate) Status: Acute Assessment and Plan: Cr 1.9 stable. Patient has history of kidney transplant Monitor
[2020-01-26 09:55] LABS: Basophils Percent Auto 0.3 % (0.2-1.2); Eosinophils Absolute Auto 0.2 K/mm3 (0-0.3); Eosinophils Percent Auto 3.6 % (0-4.4); Hematocrit 28.2 % (42.0-52.0); Hemoglobin 8.7 g/dL (14.0-18.0); Immature Granulocyte Absolute 0.02 K/mm3 (0.00-0.031); Immature Granulocyte Percent A 0.3 % (0-0.5); Lymphocytes Absolute Auto 2.67 K/mm3 (0.9-3.2); Lymphocytes Percent Auto 41.5 % (18.3-44.2); Mean Corpuscular HGB Conc 30.9 g/dl (32-36); Mean Corpuscular Hemoglobin 28.7 pg (26-34); Mean Corpuscular Volume 93.1 fl (80-100); Monocytes Absolute Auto 0.3 K/mm3 (0.1-0.6); Monocytes Percent Auto 5.3 % (2.6-8.5); Neutrophils Absolute Auto 3.2 K/mm3 (1.3-6.7); Platelet Count Result 130 k/mm3 (150-375); Red Blood Count 3.03 M/mm3 (4.6-6.20); Red Cell Distribution Width 17.6 % (11.5-14.5); White Blood Count 6.4 K/mm3 (4.5-10.0)
[2020-01-26 10:10] LABS: Alanine Aminotransferase 13 U/L (4-50); Albumin Level 2.8 g/dL (3.5-5.1); Alkaline Phosphatase 80 U/L (38-126); Aspartate Amino Transferase 16 U/L (17-59); Bilirubin,Total 0.3 mg/dL (0.2-1.3); Blood Urea Nitrogen 43 mg/dL (9-20); Calcium 8.8 mg/dL (8.4-10.2); Carbon Dioxide 26 mmol/L (22-30); Chloride 107 mmol/L (98-107); Estimated CRCL calculation 44 ml/min; Estimated Glomerular Filt Rate 34; Glucose 234 mg/dL (75-110); Potassium 4.1 mmol/L (3.4-5.0); Sodium 138 mmol/L (137-145)
[2020-01-26 12:12] LABS: Glucose Point of Care 225 (65-105)
--- NOTE | 2020-01-26 13:16 | WPDNEURORHBP ---
Subjective Date/time seen: 01/26/20 13:16 Interval history: this 64-year-old is here after having had left BKA he is going to be discharged today has done well in the rehab overall he made significant progress and the medications have been reconciled denies any headache nausea vomiting chest pain shortness of breath fever chills sore throat Review of Systems Review of Systems: All systems reviewed & are unremarkable except as noted in HPI and below Functional Status Ambulation Ability Ability to Ambulate 10 Feet: Standby Assistance Ambulation Assistive Devices: Walker, Standard Transfers Ability Ability to Transfer In/Out of Chair: Independent Exam Const: General: comfortable and no acute distress HENMT: General nose exam: Normal nares present Mouth: Yes moist mucous membranes Eyes: General: appearance normal, both eyes and all related structures Neck: Neck: supple and no JVD Resp: Effort & Inspection: normal respiratory effort Auscultation: clear to auscultation bilaterally Cardio: Rate: regular rate Rhythm: regular rhythm GI: GI Palp: Yes Soft to palpation Auscultation: normal bowel sounds Skin: General skin exam: normal color and no rashes or lesions noted Neuro: Other: improved generalized weakness and overall status of course left with the evidence of neuropathy and probably peripheral vascular disease Extrem: Other: the left BKA is clean Psych: Mental Status: mental status grossly normal Objective Data Vital Signs Vital Signs: Vital Signs - 24 hr 01/25/20 14:00 01/25/20 21:11 01/25/20 22:00 Temperature 36.8 C 37.1 C Pulse Rate 77 80 77 Respiratory Rate 20 20 Blood Pressure 117/50 L 141/61 H Pulse Oximetry 97 95 01/25/20 22:04 01/26/20 06:00 01/26/20 08:00 Temperature 37.2 C Pulse Rate 77 79 79 Respiratory Rate 13 20 20 Blood Pressure 134/65 Pulse Oximetry 96 95 95 01/26/20 09:00 Temperature Pulse Rate 79 Respiratory Rate Blood Pressure Pulse Oximetry Intake/Output Intake/Output: Intake & Output 01/23/20 01/24/20 01/25/20 01/26/20 23:59 23:59 23:59 23:59 Intake Total 1780 1070 840 740 Output Total 2500 1600 1700 500 Balance -720 530 -860 240 Meds/Results Medications: Active Medications Generic Name Dose Route Start Last Admin Trade Name Freq PRN Reason Stop Dose Admin Acetaminophen 500 mg 01/18/20 11:26 01/19/20 12:26 Tylenol Tablet PO 500 mg Q6H PRN Administration Mild Pain (1-3) or Fever Acetaminophen 500 mg 01/20/20 06:00 01/26/20 05:54 Tylenol Tablet PO 500 mg Q24H SKIP Administration Amlodipine Besylate 10 mg 01/13/20 09:00 01/26/20 09:00 Norvasc PO 10 mg DAILY SKIP Administration Aspirin 81 mg 01/13/20 09:00 01/26/20 09:00 Aspirin Ec PO 81 mg DAILY SKIP Administration Atorvastatin Calcium 20 mg 01/12/20 21:00 01/25/20 21:11 Lipitor PO 20 mg HS SKIP Administration Carvedilol 37.5 mg 01/12/20 21:00 01/26/20 09:00 Coreg PO 37.5 mg Q12HR SKIP Administration Cilostazol 100 mg 01/12/20 16:30 01/26/20 05:54 Pletal PO 100 mg BIDAC SKIP Administration Cyanocobalamin 1,000 mcg 01/13/20 09:00 01/26/20 08:59 Vitamin B-12 Tab PO 1,000 mcg DAILY SKIP Administration Dextrose 12.5 gm 01/14/20 10:23 Dextrose 50% Syringe IV PUSH PRN PRN Hypoglycemia Protocol Docusate Sodium 100 mg 01/12/20 21:00 01/26/20 09:01 Colace Capsule PO 100 mg Q12HR SKIP Administration Epoetin Madhu 10,000 units 01/17/20 09:00 01/24/20 08:54 Epogen SUB-Q 10,000 units Mo@0900 SKIP Administration Ferrous Sulfate 324 mg 01/12/20 17:00 01/26/20 09:00 Ferrous Sulfate PO 324 mg BIDWM SKIP Administration Finasteride 5 mg 01/13/20 09:00 01/26/20 08:59 Proscar PO 5 mg DAILY SKIP Administration Fish Oil 1 gm 01/12/20 17:00 01/26/20 08:59 Lovaza PO 1 gm BID SKIP Administration Folic Acid 1 mg 01/13/20 09:00 01/25
[2020-01-26] MEDS: FUROSEMIDE 20 MG TABLET PO (13:30)
--- NOTE | 2020-01-28 15:22 | PM.DS ---
DS: Admitting Diagnosis Admitting Diagnosis Admitting Diagnosis: Other acute osteomyelitis, left ankle and foot DS: Discharge Diagnosis Discharge Diagnosis (1) Pulmonary hypertension: Code(s): I27.20 - Pulmonary hypertension, unspecified Status: Acute (2) Severe pulmonary arterial systolic hypertension: Code(s): I27.21 - Secondary pulmonary arterial hypertension Status: Acute (3) STANLEY (obstructive sleep apnea): Code(s): G47.33 - Obstructive sleep apnea (adult) (pediatric) Status: Acute (4) Hypertension: Code(s): I10 - Essential (primary) hypertension Status: Acute (5) Dyspnea: Code(s): R06.00 - Dyspnea, unspecified Status: Acute (6) Hyperlipidemia, acquired: Code(s): E78.5 - Hyperlipidemia, unspecified Status: Acute (7) Type 2 diabetes mellitus with hyperglycemia, with long-term current use of insulin: Code(s): E11.65 - Type 2 diabetes mellitus with hyperglycemia; Z79.4 - nursing home (current) use of insulin Status: Acute (8) Chronic kidney disease, stage III (moderate): Code(s): N18.3 - Chronic kidney disease, stage 3 (moderate) Status: Acute (9) Osteomyelitis: Code(s): M86.9 - Osteomyelitis, unspecified Status: Acute (10) Renal transplant recipient: Code(s): Z94.0 - Kidney transplant status Status: Acute (11) History of left below knee amputation: Code(s): Z89.512 - Acquired absence of left leg below knee Status: Acute (12) Acute urinary retention: Code(s): R33.8 - Other retention of urine Status: Acute (13) BPH loc w urin obs/LUTS: Code(s): N40.1 - Benign prostatic hyperplasia with lower urinary tract symptoms Status: Acute (14) Dietary counseling and surveillance: Code(s): Z71.3 - Dietary counseling and surveillance Status: Acute DS: Summary Hospital Course Reason for hospitalization: the patient 64-year-old renal transplant for some time ago was admitted because of left [id number] amputation with multiple other diagnosis mentioned above he was seen by the hospitalist and the notes are self explanatory he received the PT OT gait training and the medical management of his underlying issues and multiple structures were given regarding his pulmonary hypertension his cardiac status and also about his diabetic and renal transplant status Hospital Course: during the hospitalization he was receiving extensive PT OT gait training he was able to achieve the following independent measures eating independent oral hygiene independent toileting setup bathing partial assistance upper body dressing independent lower body dressing partial assistance footwear set up rolling in bed independent sitting to lying independent lying to sitting independent [id number] independent chair transfers independent 12 transfers set up car transfers independent walking 10 feet supervision walking 50 feet we to turns patient was unable to walking 150 feet patient was unable to walking 10 feet uneven surfaces supervision [place] step independent he was dependent for [place] steps 4 steps dependent 12 steps not applicable became of object wheelchair 50 feet 10 which 150 feet independent patient was sent home with home health with follow-up instructions to make the follow-up with the surgeon the primary care physician bar tender and other physicians involved with his care Time Spent with Patient Time attestation: Total time spent providing and/or coordinating discharge services: Exam Const: General: comfortable and no acute distress HENMT: General nose exam: Normal nares present Mouth: Yes moist mucous membranes Eyes: General: appearance normal, both eyes and all related structures Neck: Neck: supple and no JVD Resp: Effort & Inspection: normal respiratory effort Auscultation: clear to auscultation bilaterally Cardio: Rate: regular rate Rhythm: regular rhythm GI: GI
== END 2020-01-26 15:10 | disposition home health service (06) | DRG 559 ==
PROVIDERS: Family Medicine; Physician Assistant; Admitting Provider Psychiatry & Neurology Neurology; Visit Provider Psychiatry & Neurology Neurology
DX: Z47.81 Encounter for orthopedic aftercare following surgical amputation (principal); I50.31 Acute diastolic (congestive) heart failure; Z94.0 Kidney transplant status; I13.0 Hypertensive heart and chronic kidney disease with heart failure and stage 1 through stage 4 chronic kidney disease, or unspecified chronic kidney disease; E66.9 Obesity, unspecified; I27.20 Pulmonary hypertension, unspecified; I27.21 Secondary pulmonary arterial hypertension; Z89.512 Acquired absence of left leg below knee; E11.51 Type 2 diabetes mellitus with diabetic peripheral angiopathy without gangrene; E78.5 Hyperlipidemia, unspecified; E11.42 Type 2 diabetes mellitus with diabetic polyneuropathy; E11.65 Type 2 diabetes mellitus with hyperglycemia; E11.22 Type 2 diabetes mellitus with diabetic chronic kidney disease; G47.33 Obstructive sleep apnea (adult) (pediatric); I70.213 Atherosclerosis of native arteries of extremities with intermittent claudication, bilateral legs; N18.3 Chronic kidney disease, stage 3 (moderate); N31.9 Neuromuscular dysfunction of bladder, unspecified; N39.41 Urge incontinence; N40.1 Benign prostatic hyperplasia with lower urinary tract symptoms; R06.00 Dyspnea, unspecified; R33.8 Other retention of urine; Z87.891 Personal history of nicotine dependence; Z79.4 Long term (current) use of insulin; Z68.39 Body mass index [BMI] 39.0-39.9, adult
CPT/HCPCS: 36415; 36600; 71046; 71250; 80048; 80053; 81001; 82805; 83735; 85025; 85027; 93306; 94002; 94660; 97110; 97116; 97161; 97165; 97530; 97535; 97542; A9270; J1644; J1815; J7512; Q4081

== ENCOUNTER 2020-02-16 10:12 | Outpatient (CLI) | payer MEDICARE, BC, SELFPAY ==
--- NOTE | ~2020-02-16 | XR_ITS ---
XR chest 2V 02/16/2020 10:39 Indication: Dyspnea Procedure: AP and lateral views of the chest Comparison: 01/18/2020 Findings: Cardiomegaly with interstitial edema. Small pleural effusions. No pneumothorax. No acute os seous abnormality. Impression: 1: Cardiomegaly with interstitial edema. 2: Small pleural effusions. Reviewed, dictated and finalized at location B. Impression: 1: Cardiomegaly with interstitial edema. 2: Small pleural effusions.
== END 2020-02-16 10:13 | disposition home or self-care (01) ==
PROVIDERS: Visit Provider Nurse Practitioner Family
DX: R06.00 Dyspnea, unspecified (principal); R05 Cough; J18.9 Pneumonia, unspecified organism; J90 Pleural effusion, not elsewhere classified; I51.7 Cardiomegaly
CPT/HCPCS: 71046

== ENCOUNTER 2020-05-03 02:34 | Outpatient (CLI) | payer MEDICARE, BC, SELFPAY ==
[2020-05-03 18:24] LABS: SARS-CoV-2 RNA PCR Negative
== END 2020-05-03 02:35 | disposition home or self-care (01) ==
LOC: ANHCOVIDDT 02:35
PROVIDERS: Visit Provider Internal Medicine Critical Care Medicine
DX: Z20.828 Contact with and (suspected) exposure to other viral communicable diseases (principal)
CPT/HCPCS: 87635; C9803; U0003

== ENCOUNTER 2020-05-05 05:45 | Outpatient (CLI) | payer MEDICARE, BC, SELFPAY ==
--- NOTE | 2020-06-03 13:31 | WPDSLEEPSTUD ---
Sleep Study Date of Study: 05/05/20 Ordering Provider: Marissa Mathis APRN Interpreting Physician: Lindsey Venegas MD Sleep Study Type: Split Polysomnogram Height: 1.78 m Weight: 108.862 kg Body Mass Index: 34.4 [place]: 20 Reason for Sleep Study Hypersomnia Sleep History Rigo Ogden is a 64-year-old male 5 ft 10 in tall weighing 240 lb with a body mass index of 34.4. He has a history of obstructive sleep apnea diagnosed 10 or 12 years ago but has not worn CPAP since then. He only used it for about a month and could not tolerate it. He sleeps in a recliner. He has very loud snoring and apnea. there is a family history of sleep disorders with his daughter and older brother using CPAP. He rarely awakens at night with heartburn, belching or coughing. He occasionally awakens from sleep feeling short of breath. He frequently has trouble sleep with a cold. He rarely wakes up gasping for breath at night. He frequently has breathing problems at night with Ms. by others. He rarely sweats excessively at night and rarely notices his heart pounding or beating irregularly at night. He frequently falls asleep during the day occasionally involuntarily rarely while driving and rarely during physical effort. He does not lose muscle tone with strong emotion. He does not have daytime difficulties due to excessive sleepiness. He is retired. He does not feel paralyzed on waking or falling asleep. He occasionally has vivid dreamlike scenes upon awakening or falling asleep. He has never for a to go to sleep. He rarely has nightmares. He occasionally remembers his dreams. He rarely has racing thoughts. He rarely feels sad or depressed. He occasionally feels anxious. He rarely has muscular tension, rarely notices parts of his body jerking and rarely kicks at night. He rarely has crawling and aching feelings in his legs and rarely has leg pain at night. He does not have morning jaw pain. He rarely grinds his teeth during sleep. He rarely is bothered by pain during the day. He has never awakened by pain at night. He rarely wakes up feeling stiff in the morning with sore or achy muscles. He occasionally wakes up with pain in the neck and spine. He has fatigue. Normal bedtime is 11:00 p.m. falling asleep within 15 minutes, typically waking 2 or 3 times at night for 10 minutes. While awake he will reposition himself and try to go to sleep again. He wakes about 8:00 a.m.. On weekends he goes to bed at 11:00 p.m. and wakes about 9:00 a.m. He does take naps. A short nap may be refreshing. Most of the time he feels good in the morning. He feels better in the morning than other times a day. [facility] Past Medical History Medical History (Updated 06/03/20 @ 14:19 by Lindsey Venegas MD) Amputation toe Atherosclerosis of both lower extremities with intermittent claudication Chronic kidney disease, stage III (moderate) Claudication Diastolic CHF, acute Foot ulcer, left Glaucoma History of blood transfusion History of left below knee amputation Hyperlipidemia, acquired Hypertension Obesity Obstructive sleep apnea (adult) (pediatric) (~05/2020) STANLEY (obstructive sleep apnea) Osteomyelitis Severe pulmonary arterial systolic hypertension Type 2 diabetes mellitus with hyperglycemia, with long-term current use of insulin Surgical History Surgical History History of below-knee amputation left Kidney transplanted Renal transplant recipient Family History Family History Mother Family history of kidney disease Family history of obesity Hypertension Diabetes mellitus Sibling Family history of cataracts Diabetes mellitus Father Family history of heart disease in male family member before age 55 Family history of lung cancer Family history of congestive heart failure Hypertension Diabetes mellitus Social History Social History (R
[2020-06-03 14:25] VITALS: BMI 34.4
== END 2020-05-05 05:46 ==
LOC: ANHCSM 06-08 05:45
PROVIDERS: Visit Provider Nurse Practitioner Family
DX: G47.33 Obstructive sleep apnea (adult) (pediatric) (principal); I50.9 Heart failure, unspecified; I27.20 Pulmonary hypertension, unspecified; E78.5 Hyperlipidemia, unspecified; I12.9 Hypertensive chronic kidney disease with stage 1 through stage 4 chronic kidney disease, or unspecified chronic kidney disease; E11.65 Type 2 diabetes mellitus with hyperglycemia; N18.30 Chronic kidney disease, stage 3 unspecified; Z94.0 Kidney transplant status; Z87.891 Personal history of nicotine dependence; Z79.4 Long term (current) use of insulin
CPT/HCPCS: 95811